=== PATIENT | male | born 1960 | race Caucasian/White ===

== ENCOUNTER → 2023-04-02 16:08 | Outpatient (CLI) | payer MEDICAID, SELFPAY ==
--- NOTE | 2023-04-02 16:08 | MR_ITS ---
PROCEDURE INFORMATION: Exam: MR Head Without Contrast Exam date and time: 04/02/2023 4:06 PM Age: 62 years old Clinical indication: Pain; Headache; Additional info: Benign increased intracranial pressure, headache, blurred vision, dizziness and off balance TECHNIQUE: Imaging protocol: Magnetic resonance imaging of the head without contrast. COMPARISON: No relevant prior studies available. FINDINGS: Brain: No acute infarct. No hemorrhage. Involutional changes of the brain, commensurate with age. No mass effect. Cerebral ventricles: Cavum septum pellucidum et vergae. No ventriculomegaly. Bones/joints: Unremarkable. Paranasal sinuses: Normal as visualized. No acute sinusitis. Mastoid air cells: Small left mastoid effusion. Orbital cavities: Unremarkable. Soft tissues: Unremarkable. IMPRESSION: No acute intracranial abnormality.
== END ==
PROVIDERS: PCP Family Medicine; Visit Provider Specialist
DX: G44.059 Short lasting unilateral neuralgiform headache with conjunctival injection and tearing (SUNCT), not intractable (principal); G93.2 Benign intracranial hypertension
CPT/HCPCS: 70551

== ENCOUNTER → 2023-04-23 16:01 | Outpatient (POV) | payer MEDICAID, SELFPAY | PROVIDERS: Visit Provider Specialist/Technologist | DX: Z00.00 Encounter for general adult medical examination without abnormal findings (principal) ==

== ENCOUNTER → 2023-06-04 23:56 | Outpatient (CLI) | payer MEDICAID, SELFPAY ==
[2023-06-04 17:10] LABS: Basophils # 0.1 K/mm3 (0-0.2); Basophils % 0.7 % (0.1-2.0); Eosinophils # 0.3 K/mm3 (0.0-0.4); Eosinophils % 2.6 % (0.1-12.0); Hematocrit 58.5 % (42.0-52.0); Lymphocytes # 2.8 K/mm3 (0.7-4.5); Mean Corpuscular Hemoglobin 30.8 pg (27.0-31.2); Mean Corpuscular Volume 96.4 fl (80-94); Mean Platelet Volume 10.1 fl (7.4-10.4); Monocytes # 0.8 K/mm3 (0.1-1.0); Monocytes % 7.5 % (1.7-9.3); Neutrophils # 6.2 K/mm3 (1.8-7.8); Neutrophils % 61.3 % (37.0-80.0); Platelet Count 322 K/mm3 (142-424); Red Blood Count 6.08 M/mm3 (4.60-6.20); Red Cell Distribution Width 14.3 % (11.5-17.5); White Blood Count 10.1 K/mm3 (4.8-10.8)
[2023-06-04 17:14] LABS: Alanine Aminotransferase 27 U/L (12-78); Albumin Level 4.3 g/dl (3.5-5.0); Albumin/Globulin Ratio 1.2 (1.1-1.8); Alkaline Phosphatase 88 U/L (38-126); Anion Gap 13.7 mEq/L (5-15); Aspartate Amino Transferase 33 U/L (17-59); Bilirubin,Total 0.4 mg/dl (0.2-1.3); Blood Urea Nitrogen 10 mg/dl (9-20); Calcium 9.6 mg/dl (8.4-10.2); Carbon Dioxide 32 mmol/L (22.0-30.0); Chloride 100 mmol/L (98-107); Chol/HDL Ratio 7.2 (1-3.5); Cholesterol 187 mg/dl (140-200); Estimated Glomerular Filt Rate 76 ml/min (>60); GFR (African American) 92 ML/MIN (>60); Globulin 3.5 g/dL (1.3-3.2); Glucose 156 mg/dl (74-100); HDL Cholesterol 26 mg/dl (40-60); Potassium 4.7 mmoL/L (3.5-5.1); Sodium 141 mmol/L (136-145); Total Protein,Serum 7.8 g/dl (6.3-8.2); Triglycerides 379 mg/dl (30-150); VLDL Cholesterol 76 mg/dL (0-40)
[2023-06-04 17:25] LABS: Direct LDL Cholesterol 104.05 mg/dL (100-129)
[2023-06-04 17:38] LABS: Hemoglobin 18.1 g/dL (14.1-18.0)
[2023-06-04 17:45] LABS: Thyroid Stimulating Hormone 1.78 uIU/mL (0.465-4.68)
[2023-06-04 20:11] LABS: Hemoglobin A1C 7.8 % (4.0-6.0)
== END ==
PROVIDERS: PCP Family Medicine; Visit Provider Family Medicine
DX: Z00.00 Encounter for general adult medical examination without abnormal findings (principal); R53.83 Other fatigue; I10 Essential (primary) hypertension; E11.9 Type 2 diabetes mellitus without complications; Z79.84 Long term (current) use of oral hypoglycemic drugs; Z79.899 Other long term (current) drug therapy
CPT/HCPCS: 80053; 80061; 83036; 84443; 85025

== ENCOUNTER → 2023-07-31 16:38 | Outpatient (CLI) | payer MEDICAID, SELFPAY ==
[2023-07-31 16:38] LABS: Basophils # 0.1 K/mm3 (0-0.2); Basophils % 0.9 % (0.1-2.0); Eosinophils # 0.4 K/mm3 (0.0-0.4); Eosinophils % 2.9 % (0.1-12.0); Hematocrit 52.7 % (42.0-52.0); Hemoglobin 17.8 g/dL (14.1-18.0); Lymphocytes # 3.7 K/mm3 (0.7-4.5); Lymphocytes % 30.1 % (10-50); Mean Corpuscular HGB Conc 33.7 g/dL (31.8-35.4); Mean Corpuscular Hemoglobin 31.7 pg (27.0-31.2); Neutrophils # 7.1 K/mm3 (1.8-7.8); Platelet Count 304 K/mm3 (142-424); Red Blood Count 5.61 M/mm3 (4.60-6.20); Red Cell Distribution Width 13.4 % (11.5-17.5); White Blood Count 12.3 K/mm3 (4.8-10.8)
== END ==
PROVIDERS: PCP Family Medicine; Visit Provider Family Medicine
DX: D75.1 Secondary polycythemia (principal)
CPT/HCPCS: 85025

== ENCOUNTER 2023-08-06 09:03 | Outpatient (CLI) | payer MEDICAID, SELFPAY ==
--- NOTE | 2023-08-06 09:07 | XR_ITS ---
FINAL REPORT CLINICAL HISTORY: low back pain neck pain FINDINGS: LUMBAR SPINE 5 views of the lumbar spine were obtained. There is no acute fracture or subluxation. There are mild to moderate degenerative changes with osteophytes. A chronic, L1 compression fracture is seen. There are mild vascular calcifications. IMPRESSION: No acute bony abnormality. CERVICAL SPINE 5 views of the cervical spine were obtained. There is no acute fracture or subluxation. There are moderate degenerative changes. Multilevel, mild neuroforaminal narrowing is seen. Soft tissues are unremarkable. IMPRESSION: Mild, multilevel neuroforaminal narrowing without acute bony abnormality. Reviewed, Interpreted and Dictated by Pascual Tran III, MD Transcribed by Tita Price Authenticated and [facility]
== END 2023-08-06 10:15 | disposition home or self-care (01) ==
LOC: INF 09:04
PROVIDERS: PCP Family Medicine; Visit Provider Family Medicine
DX: D45 Polycythemia vera (principal)
CPT/HCPCS: 72084

== ENCOUNTER 2023-08-07 08:31 | Outpatient (CLI) | payer MEDICAID, SELFPAY ==
[2023-08-07 09:10] VITALS: BP 158/88; PULSE 58; RESP 18; TEMP 36.6; O2SAT 98
[2023-08-07 09:30] VITALS: BP 150/81; PULSE 58; RESP 18; O2SAT 98
== END 2023-08-07 09:30 | disposition home or self-care (01) ==
LOC: INF 08:32
PROVIDERS: PCP Family Medicine; Visit Provider Family Medicine
DX: D45 Polycythemia vera (principal)
CPT/HCPCS: 99195

== ENCOUNTER → 2023-09-24 16:42 | Outpatient (CLI) | payer MEDICAID, SELFPAY ==
[2023-09-24 16:42] LABS: Alanine Aminotransferase 26 U/L (12-78); Albumin/Globulin Ratio 1.3 (1.1-1.8); Alkaline Phosphatase 78 U/L (38-126); Anion Gap 10.1 mEq/L (5-15); Aspartate Amino Transferase 32 U/L (17-59); Bilirubin,Total 0.4 mg/dl (0.2-1.3); Blood Urea Nitrogen 11 mg/dl (9-20); Calcium 8.8 mg/dl (8.4-10.2); Carbon Dioxide 29 mmol/L (22.0-30.0); Chloride 101 mmol/L (98-107); Chol/HDL Ratio 9.1 (1-3.5); Cholesterol 218 mg/dl (140-200); Estimated Glomerular Filt Rate 98 ml/min (>60); GFR (African American) 119 ML/MIN (>60); Globulin 3.1 g/dL (1.3-3.2); Glucose 161 mg/dl (74-100); HDL Cholesterol 24 mg/dl (40-60); Potassium 4.1 mmoL/L (3.5-5.1); Sodium 136 mmol/L (136-145); Total Protein,Serum 7.1 g/dl (6.3-8.2); Triglycerides 391 mg/dl (30-150); VLDL Cholesterol 78 mg/dL (0-40)
[2023-09-24 16:50] LABS: Basophils # 0.1 K/mm3 (0-0.2); Basophils % 0.7 % (0.1-2.0); Eosinophils # 0.3 K/mm3 (0.0-0.4); Eosinophils % 2.5 % (0.1-12.0); Hematocrit 54.2 % (42.0-52.0); Hemoglobin 17.6 g/dL (14.1-18.0); Lymphocytes # 3.2 K/mm3 (0.7-4.5); Lymphocytes % 27.9 % (10-50); Mean Corpuscular HGB Conc 32.4 g/dL (31.8-35.4); Mean Corpuscular Hemoglobin 30.2 pg (27.0-31.2); Mean Corpuscular Volume 93.2 fl (80-94); Mean Platelet Volume 9.8 fl (7.4-10.4); Monocytes # 0.8 K/mm3 (0.1-1.0); Monocytes % 7.3 % (1.7-9.3); Neutrophils % 61.6 % (37.0-80.0); Platelet Count 300 K/mm3 (142-424); Red Blood Count 5.82 M/mm3 (4.60-6.20); Red Cell Distribution Width 13.8 % (11.5-17.5); White Blood Count 11.3 K/mm3 (4.8-10.8)
[2023-09-24 16:54] LABS: Direct LDL Cholesterol 126.08 mg/dL (100-129)
[2023-09-24 17:46] LABS: Hemoglobin A1C 8.4 % (4.0-6.0)
== END ==
PROVIDERS: PCP Family Medicine; Visit Provider Family Medicine
DX: E11.9 Type 2 diabetes mellitus without complications (principal); I10 Essential (primary) hypertension; Z79.84 Long term (current) use of oral hypoglycemic drugs
CPT/HCPCS: 80053; 80061; 83036; 85025

== ENCOUNTER 2024-01-26 09:09 | Outpatient (CLI) | payer MEDICAID, SELFPAY ==
[2024-01-26 16:43] LABS: Basophils # 0.2 K/mm3 (0-0.2); Basophils % 1.3 % (0.1-2.0); Eosinophils # 0.4 K/mm3 (0.0-0.4); Hematocrit 52.8 % (42.0-52.0); Hemoglobin 16.7 g/dL (14.1-18.0); Lymphocytes % 32.2 % (10-50); Mean Corpuscular HGB Conc 31.7 g/dL (31.8-35.4); Mean Corpuscular Hemoglobin 30.6 pg (27.0-31.2); Mean Corpuscular Volume 96.5 fl (80-94); Mean Platelet Volume 9.9 fl (7.4-10.4); Neutrophils # 6.9 K/mm3 (1.8-7.8); Neutrophils % 55.5 % (37.0-80.0); Platelet Count 288 K/mm3 (142-424); Red Blood Count 5.47 M/mm3 (4.60-6.20); Red Cell Distribution Width 14.9 % (11.5-17.5); White Blood Count 12.4 K/mm3 (4.8-10.8)
[2024-01-26 17:29] LABS: Alanine Aminotransferase 21 U/L (12-78); Albumin Level 4.2 g/dl (3.5-5.0); Albumin/Globulin Ratio 1.4 (1.1-1.8); Alkaline Phosphatase 81 U/L (38-126); Anion Gap 19.6 mEq/L (5-15); Aspartate Amino Transferase 27 U/L (17-59); Bilirubin,Total 0.3 mg/dl (0.2-1.3); Blood Urea Nitrogen 12 mg/dl (9-20); Calcium 9.3 mg/dl (8.4-10.2); Carbon Dioxide 20 mmol/L (22.0-30.0); Chloride 103 mmol/L (98-107); Estimated Glomerular Filt Rate 114 ml/min (>60); GFR (African American) 138 ML/MIN (>60); Globulin 2.9 g/dL (1.3-3.2); Glucose 102 mg/dl (74-100); Potassium 3.6 mmoL/L (3.5-5.1); Sodium 139 mmol/L (136-145); Total Protein,Serum 7.1 g/dl (6.3-8.2)
[2024-01-26 17:57] LABS: Thyroid Stimulating Hormone 2.32 uIU/mL (0.465-4.68)
[2024-01-26 19:06] LABS: Hemoglobin A1C 8.4 % (4.0-6.0)
== END 2024-01-26 23:59 | disposition home or self-care (01) ==
LOC: LAB.DROPOF 01-27 09:09
PROVIDERS: PCP Family Medicine; Visit Provider Family Medicine
DX: R53.83 Other fatigue (principal); I10 Essential (primary) hypertension; E11.42 Type 2 diabetes mellitus with diabetic polyneuropathy; Z79.84 Long term (current) use of oral hypoglycemic drugs; Z87.891 Personal history of nicotine dependence
CPT/HCPCS: 80053; 83036; 84443; 85025

== ENCOUNTER 2024-01-29 09:59 | Outpatient (CLI) | payer MEDICAID, SELFPAY ==
[2024-01-29 10:37] VITALS: BP 180/88; PULSE 56; RESP 16; TEMP 36.3; O2SAT 95
[2024-01-29 11:08] VITALS: BP 159/79; PULSE 61; RESP 16; TEMP 36.3; O2SAT 95
--- NOTE | 2024-01-29 15:59 | PC.NURSE ---
therapeutic phlebotomy 215ml collected.
== END 2024-01-29 11:15 | disposition home or self-care (01) ==
LOC: INF 09:59
PROVIDERS: PCP Family Medicine; Visit Provider Family Medicine
DX: D75.1 Secondary polycythemia (principal)
CPT/HCPCS: 99195

== ENCOUNTER 2024-03-23 09:51 | Outpatient (CLI) | payer MEDICAID, SELFPAY ==
--- NOTE | 2024-03-23 09:51 | CA_ITS ---
FINAL REPORT CLINICAL HISTORY: bilateral leg swelling and knots on legs. DM, ex smoker, smokes marijuana, HLD, HTN. Patient states he noticed knots in his right calf 2 weeks ago. Those knots now extend into right thigh with redness noted in the medial aspect of mid right thigh. Denies trauma. 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 COMPARISON: None FINDINGS: Color Doppler, duplex Doppler and compression sonography of the bilateral lower extremities was performed. There is no evidence of deep venous thrombosis from the level of the groin to the calf in the left lower extremity.. The deep veins are patent and compressible. In the right lower extremity, there is loss of compressibility and lack of flow in the superficial venous system involving the greater saphenous vein. The deep venous system from the level of the groin to the calf reveals flow and compressibility to be normal. IMPRESSION: No evidence of deep venous thrombosis bilateral lower extremities. Loss of compressibility and lack of flow in the greater saphenous vein consistent with superficial venous thrombosis in the right leg. These results were called by the mold repair technician to [place] in Dr. Mcmullen's office. Reviewed, Interpreted and Dictated by Pascual Tran III, MD Transcribed by Kristin Hendrickson Authenticated and [facility]
== END 2024-03-23 23:59 | disposition home or self-care (01) ==
LOC: RT 09:51
PROVIDERS: PCP Family Medicine; Visit Provider Family Medicine
DX: R22.43 Localized swelling, mass and lump, lower limb, bilateral (principal)
CPT/HCPCS: 93970

== ENCOUNTER 2024-05-04 12:11 | Outpatient (CLI) | payer MEDICAID, SELFPAY | END 2024-05-04 23:59 | disposition home or self-care (01) | LOC: LAB.DROPOF 05-05 12:11 | PROVIDERS: PCP Family Medicine; Visit Provider Family Medicine | DX: E11.42 Type 2 diabetes mellitus with diabetic polyneuropathy (principal); Z79.84 Long term (current) use of oral hypoglycemic drugs | CPT/HCPCS: 83036 ==

== ENCOUNTER 2024-08-03 22:04 | Outpatient (CLI) | payer MEDICAID, SELFPAY ==
[2024-08-03 22:31] LABS: Basophils # 0.1 K/mm3 (0-0.2); Basophils % 1.4 % (0.1-2.0); Eosinophils # 0.2 K/mm3 (0.0-0.4); Eosinophils % 2.6 % (0.1-12.0); Hematocrit 53.9 % (42.0-52.0); Hemoglobin 17.8 g/dL (14.1-18.0); Lymphocytes # 2.3 K/mm3 (0.7-4.5); Lymphocytes % 26.7 % (10-50); Mean Corpuscular Hemoglobin 32.6 pg (27.0-31.2); Mean Corpuscular Volume 98.8 fl (80-94); Mean Platelet Volume 10.1 fl (7.4-10.4); Monocytes # 0.8 K/mm3 (0.1-1.0); Monocytes % 9.1 % (1.7-9.3); Neutrophils # 5.3 K/mm3 (1.8-7.8); Neutrophils % 60.1 % (37.0-80.0); Platelet Count 291 K/mm3 (142-424); Red Blood Count 5.46 M/mm3 (4.60-6.20); Red Cell Distribution Width 14.1 % (11.5-17.5); White Blood Count 8.7 K/mm3 (4.8-10.8)
[2024-08-03 23:01] LABS: Alanine Aminotransferase 37 U/L (12-78); Albumin Level 4.6 g/dl (3.5-5.0); Albumin/Globulin Ratio 1.5 (1.1-1.8); Alkaline Phosphatase 82 U/L (38-126); Anion Gap 10.2 mEq/L (5-15); Aspartate Amino Transferase 44 U/L (17-59); Bilirubin,Total 0.5 mg/dl (0.2-1.3); Blood Urea Nitrogen 12 mg/dl (9-20); Calcium 9.5 mg/dl (8.4-10.2); Carbon Dioxide 31 mmol/L (22.0-30.0); Chloride 99 mmol/L (98-107); Cholesterol 263 mg/dl (140-200); Estimated Glomerular Filt Rate 114 ml/min (>60); GFR (African American) 138 ML/MIN (>60); Globulin 3.1 g/dL (1.3-3.2); Glucose 119 mg/dl (74-100); HDL Cholesterol 33 mg/dl (40-60); Potassium 5.2 mmoL/L (3.5-5.1); Sodium 135 mmol/L (136-145); Total Protein,Serum 7.7 g/dl (6.3-8.2)
[2024-08-03 23:11] LABS: Triglycerides 594 mg/dl (30-150)
[2024-08-03 23:14] LABS: Hemoglobin A1C 7.3 % (4.0-6.0)
[2024-08-04 00:11] LABS: Thyroid Stimulating Hormone 1.94 uIU/mL (0.465-4.68)
== END 2024-08-03 23:59 | disposition home or self-care (01) ==
LOC: LAB.DROPOF 22:05
PROVIDERS: PCP Family Medicine; Visit Provider Family Medicine
DX: I10 Essential (primary) hypertension (principal); D75.1 Secondary polycythemia; E11.42 Type 2 diabetes mellitus with diabetic polyneuropathy; Z79.84 Long term (current) use of oral hypoglycemic drugs
CPT/HCPCS: 80050; 80053; 80061; 83036; 84443; 85025

== ENCOUNTER 2024-08-23 06:12 | Outpatient (CLI) | payer MEDICAID, SELFPAY ==
--- NOTE | 2024-08-23 | CA_ITS ---
APPROVED REPORT Exam: Pharmacologic Technologist: Vianca Wise Ht: 5 ft 11 in Wt: 244 lbs BSA: 2.29 m2 HR: 64 bpm BP: 185/94 mmHg Medical History Medications: Albuterol, Allopurinol, Amitriptyline,Jardiance,Glipizide,Losartan,Metformin,Metoprolol, Pantoprazole, Pravastatin, Tamsulosin Stress Test Details Test: Lexiscan HR Resting HR: 64 bpm Max Heart Rate (APMHR): 157 bpm Max HR Achieved: 83 bpm Target HR (85% APMHR): 133 bpm % of APMHR: 53 Recovery HR: 72 bpm BP Resting BP: 185.0/94.0 mmHg Max BP: 185.0/94.0 mmHg Recovery BP: 184.0/93.0 mmHg ECG Resting ECG: Sinus rhythm Stress ECG Conclusion Symptoms: Dyspnea, Nausea Arrhythmias/Ectopy: None ST-T Changes: Less than 1 mm elevation Conclusion: EKG portion unremarkable due to Lexiscan infusion. Electronically signed by : Sakina Rodriguez MD 08/24/2024 12:19:56
--- NOTE | 2024-08-23 06:16 | NM_ITS ---
APPROVED REPORT Exam: Nuclear Stress Test Indication: Chest pain, SOB, HTN, DM, High choelsterol, Family history Patient Location: Outpatient Stress Tech: Vianca Wise [place] Tech:Petty Escamilla, ARRT, RT (R)(N) Ht: 5 ft 11 in Wt: 245 lbs HR: 64 bpm BP: 185/94 mmHg BSA: 2.30 m2 TID: 1.28 BMI: 34.1 History: Chest pain, SOB, HTN, DM, High choelsterol, Family history Procedure: Patient received 0.4 mg of intravenous Lexiscan, resting heart rate 64 bpm, resting blood pressure 185/94 mmHg, with Lexiscan maximum heart rate achieved was 76 bpm which is % of the maximum predicted heart rate and blood pressure was 171/96 mmHg. With Lexiscan, patient denied any complaint of chest pain. Cardiac Stress and Resting SPECT Images: Cardiac Stress and Resting SPECT images were obtained using technetium 99m Myoview 26.2 mCi stress and 8.25 mCi at rest. Resting and stress imaging in supine and prone positions demonstrate no evidence of fixed or reversible perfusion defects. There is increase in transient ischemic dilatation ratio (TID 1.28), suggestive of possible multivessel disease or balanced ischemia. Gated imaging demonstrates normal global and regional LV systolic function. LVEF is calculated at 56%. Conclusion: No evidence of fixed or reversible perfusion defects. There is increase in transient ischemic dilatation ratio (TID 1.28), suggestive of possible multivessel disease or balanced ischemia. Gated imaging demonstrates normal global and regional LV systolic function. LVEF is calculated at 56%. In the setting of normal LV systolic function and no focal perfusion defects, further evaluation for the TID is suggested noninvasively with CCTA (if clinically feasible and indicated) prior to proceeding with invasive coronary angiography. Electronically signed by : Sakina Rodriguez MD 08/24/2024 12:08:47
[2024-08-23] MEDS: REGADENOSON 0.4MG/5ML SYRINGE 0.4 MG IV (08:08)
[2024-08-23] MEDS: SODIUM CHLORIDE 0.9% 10ML SYR (RAD ONLY) 10 ML IV ×2 (08:08)
[2024-08-23] MEDS: ISOTOPE MYOVIEW (PER STUDY) 1 DOSE IV (08:08)
== END 2024-08-23 23:59 | disposition home or self-care (01) ==
LOC: RAD 06:12
PROVIDERS: PCP Family Medicine; Visit Provider Physician Assistant
DX: R07.9 Chest pain, unspecified (principal); R94.31 Abnormal electrocardiogram [ECG] [EKG]; R06.00 Dyspnea, unspecified
CPT/HCPCS: 78452; 93017; 93018; A9502; J2785

== ENCOUNTER 2024-09-06 12:01 | Outpatient (CLI) | payer MEDICAID, SELFPAY | END 2024-09-06 23:59 | disposition home or self-care (01) | LOC: RT 12:02 | PROVIDERS: PCP Family Medicine; Visit Provider Internal Medicine | DX: R42 Dizziness and giddiness (principal); R55 Syncope and collapse | CPT/HCPCS: 93270 ==

== ENCOUNTER 2024-09-28 08:16 | Outpatient (CLI) | payer MEDICAID, SELFPAY ==
[2024-09-28 07:37] VITALS: BMI 34.0
--- NOTE | 2024-09-28 08:17 | CT_ITS ---
APPROVED REPORT Freezer Unloader: CLINICAL INDICATION Chest Pain TECHNIQUE Image Acquisition: A 128 slice MDCT scanner ([employer] View) was used for data acquisition. A noncontrast coronary calcium scan was performed. A CT attenuation threshold of 130 Hounsfield units (HU) was used for the detection of calcium in contiguous voxels of 1 sq mm in area to be counted as individual lesions. Bolus tracking in the ascending aorta with a threshold of 180 HU was performed. Immediately afterwards, ECG synchronized cardiac CT was then performed from the cardiac base to apex using retrospective gating with ECG tube current modulation. A total of 85 mL of Isovue 370 mg/mL contrast medium was administered at 5 mL/sec followed by a saline flush using a biphasic injection protocol. A tube voltage of 120 KVp was used. The patient received the following medications prior to the cardiac CT. 0.8 mg of sublingual nitroglycerin The average heart rate at the time of acquisition was 59 bpm and regular. Image Reconstruction Transaxial images were reconstructed at 0.67 mm slide thickness. Data was reviewed interactively on an advanced workstation capable of 2 and 3-dimensional displays in all conventional reconstruction formats, including multiplanar reformations, maximum intensity projections, curved multiplanar reformations, and volume rendered reconstructions. When applicable, selected routine images describing the relevant coronary anatomy and pathology were saved and sent to PACS. Complications None Technical Quality Overall image quality was good. Coronary artery opacification was adequate. Total DLP (Dose-Length Product) is 1597.8 mGy-cm. The reported value represents the total of one or more individual components during the CT acquisition of this date and at this time, and as such, the same value may appear in more than one CT report depending on the interpreting/reporting physicians. COMPARISON None FINDINGS CT Coronary Calcium Scoring LMA (Left Main Artery) = 0 LAD (Left Anterior Descending) = 0 LCX (Left Coronary Circumflex) = 0 RCA (Right Coronary Artery) = 0 Total Calcium Score = 0 using the AJ-130 method. The interpretation of the calcium heart score is based on the following continuum*: 0 = no calcified plaque detected (risk of coronary artery disease is very low ??? less than 5%) 1-10 = calcium detected in extremely minimal levels (risk of coronary diseases is still low ??? less than 10%) 11-100 = mild levels of plaque detected with certainty (mild or minimal narrowing of heart arteries is likely) 101-400 = definite,at least moderate levels of plaque detected (relatively high risk of a heart attack within 3-5 years) >401-999 = extensive levels of plaque detected (high risk of heart attack, high levels of vascular disease are present, high likelihood of at least one significant coronary narrowing) *The calcium heart score quantifies the burden of coronary calcification/plaque in the coronary arteries. The calcium heart score is not able to evaluate the presence or burden of non-calcified (i.e. soft) plaque. There is no identifiable calcification in the aortic valve, mitral annulus or mitral valve, pericardium, or myocardium. Coronary CT Angiography The coronary arterial system is right dominant. Quantitative Stenosis Grading: Left Main (LM): The left main originates normally from the left sinus of Valsalva. The LM bifurcates into the left anterior descending artery and left circumflex artery. The LM is patent with no evidence of atherosclerosis. Left Anterior Descending (LAD) and Diagonal Branches: The LAD gives off 2 diagonal branch(es). The LAD and its branches are patent with no evidence of atherosclerosis. There is no evidence of LAD-myocardial bridge. Left Circumflex (LCX) and Obtuse Marginals (OM): The LCX gives off 2 Obtuse Marginal (OM) branch(es). The LCX and its branches are patent with no evidence of atherosclerosis. Right Coronary Artery (RCA): The RCA originates normally from the right sinus of Valsalva. There are 2 foci of noncalcified plaque present in the proximal RCA segment, with up to 70-90% luminal stenosis (the findings considered less likely to be artifact as it was present on multiple cardiac phases and planes). Non-Coronary Cardiac Findings: Analysis of the left ventricular (LV) structure and function was performed after 3-D reconstruction of the LV from axial images, with user-corrected automatic contouring for assessment of LV volumes and user-defined reconstruction from oblique planes for measurement of 3-D cardiac structure and function. -The left ventricle systolic function is normal. -There is no left atrial appendage filling defect. Two right pulmonary veins and two left pulmonary veins drain normally into the left atrium. -No pericardial thickening or calcification. -Central and branch pulmonary arteries in the [id number] are unremarkable. -Thoracic aorta within the visualized thoracic aortic-branches in the [id number] is unremarkable. Extracardiac Structures No significant extra-cardiac findings. Note, however, that this study is focused on the cardiac findings. IMPRESSION -Presence of coronary calcification with an Agatston score = 0 using the AJ-130 method. -Noncalcified low-attenuation plaque present in the proximal RCA, with up to 70-90% luminal stenosis (the findings considered less likely to be artifact as it was present on multiple cardiac phases and planes) -CAD-RADS 4A. Management recommendations per ACC/AHA guidelines*, as clinically appropriate. *Recommendations: CAD RADS 0: Reassurance. Consider non-atherosclerotic causes of chest pain. CAD RADS 1: Consider non-atherosclerotic causes of chest pain. Consider preventive therapy and risk factor modification. CAD RADS 2: Consider non-atherosclerotic causes of chest pain. Consider preventive therapy and risk factor modification, particularly for patients with nonobstructive plaque in multiple segments. CAD RADS 3: Consider further functional testing. Consider symptom-guided anti-ischemic and preventive pharmacotherapy as well as risk factor modification per published guideline statements. CAD RADS 4A: Consider further functional testing or invasive coronary angiography with revascularization per published guideline statements. Consider symptom-guided anti-ischemic and preventive pharmacotherapy as well as risk factor modification per published guideline statements. CAD RADS 4B: Invasive coronary angiography recommended with revascularization per published guideline statements. Consider symptom-guided anti-ischemic and preventive pharmacotherapy as well as risk factor modification per published guideline statements. CAD RADS 5: Consider invasive angiography and/or viability assessment with revascularization per published guideline statements. Consider symptom-guided anti-ischemic and preventive pharmacotherapy as well as risk factor modification per published guideline statements. CRITICAL RESULT None COMMUNICATION Per this written report The coronary and cardiac findings of this CCTA were reviewed, reported, and signed by Ahmet Rodriguez MD (Manager Video) Conclusion Electronically signed by : Sakina Rodriguez MD 09/29/2024 12:42:32
[2024-09-28 08:32] VITALS: BP 191/94; PULSE 56; RESP 16; TEMP 36.1; O2SAT 92
[2024-09-28 08:53] LABS: Chloride 103 mmol/L (98-107)
[2024-09-28 08:54] LABS: Potassium 3.3 mmoL/L (3.5-5.1); Sodium 136 mmol/L (136-145)
[2024-09-28 08:57] LABS: Anion Gap 4.3 mEq/L (5-15); Blood Urea Nitrogen 9 mg/dl (9-20); Carbon Dioxide 32 mmol/L (22.0-30.0); Creatinine Clearance Estimated 118 mL/min (50-200); Estimated Glomerular Filt Rate 98 ml/min (>60); GFR (African American) 118 ML/MIN (>60); Glucose 152 mg/dl (74-100)
[2024-09-28 09:10] VITALS: BP 196/109; PULSE 54; RESP 20; O2SAT 96
[2024-09-28] MEDS: NITROGLYCERIN 0.4MG SL TABLET SL (09:10)
[2024-09-28 09:13] VITALS: BP 130/91; PULSE 57; RESP 18; O2SAT 95
[2024-09-28 09:16] VITALS: BP 130/96; PULSE 59; RESP 18; O2SAT 93
[2024-09-28] MEDS: IOPAMIDOL-370 (76%);100ML BOTTLE 85 ML IV (09:22)
[2024-09-28] MEDS: SODIUM CHLORIDE 0.9% 10ML SYR (RAD ONLY) 10 ML IV (09:22)
[2024-09-28] MEDS: 0.9 % SODIUM CHLORIDE 50 ML VIAL IV (09:22)
== END 2024-09-28 09:45 | disposition home or self-care (01) ==
PROVIDERS: PCP Family Medicine; Visit Provider Internal Medicine
DX: R94.31 Abnormal electrocardiogram [ECG] [EKG] (principal); R93.1 Abnormal findings on diagnostic imaging of heart and coronary circulation; R55 Syncope and collapse; R42 Dizziness and giddiness
CPT/HCPCS: 75574; 80048; Q9967

== ENCOUNTER 2024-10-13 07:42 | Outpatient (CLI) | payer MEDICAID, SELFPAY ==
--- NOTE | 2024-10-13 07:57 | CA_ITS ---
APPROVED REPORT EXAM: Comprehensive 2D, Doppler, and color-flow Echocardiogram Armhole Presser: Felisa Cormier RVT Ht: 5 ft 11 in Wt: 244lbs BSA: 2.29 BP: 150/78 mmHg Indications: CP,DYSPENA,ABN EKG,DM,HTN,EX SMOKER,SYNCOPE 2D Dimensions LA Volume 70.60 mL LA Volume Index 30.70 mL/m2 (M/F) 16-34 M-Mode Dimensions RVDd 2.76 cm (0.9-2.6) LA Diam 3.73 cm (1.9-4.0) LVDd 6.07 cm (3.5-5.7) LVDs 4.33 cm (3.5-5.7) IVSd 1.32 cm (0.6-1.1) PWd 0.76 cm (0.6-1.1) EF (Teich) 54.30% FS 28.70% EDV (Teich) 184.80 mL TAPSE 2.69 (<1.7) ESV (Teich) 84.40 mL LV Diastology E Decel Time 260 (160-240 msec) E/A Ratio 0.8 Aortic Valve HARI Index 1.00 cm2/m2 AoV Peak Rachid. 121.0 (50-130 cm/s) AI PHT 713.00 ms AO Peak GR. 5.90 mmHg AO Mean GR. 3.50 (<5 mmHg) AO VTI 27.6 (18-25 cm) HARI (VTI) 2.35 (2.5-4.5 cm2) Mitral Valve MV E Max Rachid. 61.0 (40-130 cm/s) MV A Velocity 75.0 (40-130 cm/s) E/A Ratio 0.82 MV PHT 76.0 ms Pulmonary Valve PV Peak Velocity 78.0 (50-150 cm/s) Left Ventricle The left ventricle is normal size. The left ventricular systolic function is normal. The left ventricular ejection fraction is within the normal range. There is increased LV wall thickness. There is normal LV segmental wall motion. The left ventricular diastolic function is normal. LVEF is 55%. Right Ventricle The right ventricle is normal size. The right ventricular systolic function is normal. Atria Left atrium is mildly dilated. Right atrium is mildly dilated. There is no Doppler evidence of interatrial shunt. Aortic Valve The aortic valve is mildly thickened. There is no aortic valvular stenosis. Trace aortic regurgitation. Mitral Valve The mitral valve is normal in structure. No evidence of mitral valve stenosis. Trace mitral regurgitation. Tricuspid Valve Tricuspid valve is grossly normal in structure and function. Trace tricuspid regurgitation. There is insufficient TR jet to estimate RVSP. Pulmonic Valve The pulmonary valve is normal in structure. Trace pulmonic regurgitation. Great Vessels The aortic root is normal in size. IVC is normal in size and collapses >50% with inspiration. Pericardium There is no pericardial effusion. Other Information Study Quality: Fair Conclusion Normal biventricular systolic function. Mild biatrial dilation. No significant valvular stenosis or regurgitation. Electronically signed by : Sakina Rodriguez MD 10/19/2024 19:45:34
== END 2024-10-13 23:59 | disposition home or self-care (01) ==
LOC: RT 07:43
PROVIDERS: PCP Family Medicine; Visit Provider Internal Medicine
DX: I51.7 Cardiomegaly (principal); R07.89 Other chest pain; R06.09 Other forms of dyspnea; R55 Syncope and collapse; R42 Dizziness and giddiness; R94.31 Abnormal electrocardiogram [ECG] [EKG]; R93.1 Abnormal findings on diagnostic imaging of heart and coronary circulation
CPT/HCPCS: 93306

== ENCOUNTER 2024-10-14 06:30 | Day surgery (SDC) | payer MEDICAID, SELFPAY ==
[2024-10-14] VITALS (12 sets, daily range): BP systolic 113–186; BP diastolic 58–105; PULSE 51–68; RESP 17–18; TEMP 36.6; O2SAT 93–99; BMI 34.0
--- NOTE | 2024-10-14 07:13 | IR_ITS ---
APPROVED REPORT Patient Location: Outpatient Pattern Scratcher: Bartolo Alves, RT (R) PROCEDURES Left heart catheterization Left ventriculogram Selective coronary angiogram Drug-eluting stent deployment to the mid dominant right coronary artery INDICATION Coronary artery disease, Angina pectoris Informed consent was obtained prior to the procedure. COMPLICATIONS NONE Estimated Blood Loss: LESS THAN 10 ML TECHNIQUE One percent lidocaine used to anesthetize the right anterior aspect of the wrist. The right radial artery was accessed via the Seldinger technique. A 6 Israeli sheath was placed in the right radial artery. 2.5 mg of Verapamil, 800 mcg of nitroglycerin, 1mg Lidocaine and 5000 U Heparin were given through the arterial sheath. The papa catheter was also used to perform left heart catheterization, left ventriculogram and selective coronary angiogram. At the end of the diagnostic angiogram therapeutic heparin was administered giving a therapeutic ACT and the guide catheter was placed in the right coronary artery followed by Choice PT extra-support wire placed distally. A 5 mm x 30 mm Startex frontier stent was deployed at 16 susan reducing the stenosis. A 5 mm x 12 mm noncompliant balloon was then introduced into the midportion of the stent dilated at 24 susan to post dilate. The balloon was brought back proximally and also dilated to 24 susan to post dilate. JOSH-3 flow was present before and after the procedure. After achieving excellent angiographic results the apparatus was removed the sheath was removed and hemostasis was achieved using TR banding patient was transferred to the postop putting in stable condition ANGIOGRAPHIC RESULTS The left main artery Normal The left anterior descending artery Mild proximal and mid vessel 10% luminal regularities The circumflex artery Nondominant 10% luminal regularities The right coronary artery Massively large dominant vessel with a mid vessel eccentric 80% stenosis followed by distal 20 and 30% stenosis The ADAMS ventriculogram reveals Normal 65% The left ventricular end-diastolic pressure 10 mmHg IMPRESSION Severe disease of massively large dominant right coronary artery with successful stenting reducing the lesion to 0% with 1 drug-eluting stent Normal ejection fraction Normal LVEDP PLAN 1. Effient and aspirin 2. LDL less than 55 to achieve that high intensity statin 3. Avoidance of tobacco product 4. Risk factor modification better control of hypertension 5. Cardiac rehabilitation Electronically signed by : Baldo Pereira MD 10/14/2024 09:31:56
[2024-10-14 07:16] LABS: Basophils # 0.1 K/mm3 (0-0.2); Basophils % 1.2 % (0.1-2.0); Eosinophils # 0.3 K/mm3 (0.0-0.4); Eosinophils % 2.9 % (0.1-12.0); Hematocrit 48.9 % (42.0-52.0); Hemoglobin 16.6 g/dL (14.1-18.0); Lymphocytes # 2.6 K/mm3 (0.7-4.5); Lymphocytes % 24.5 % (10-50); Mean Corpuscular HGB Conc 33.9 g/dL (31.8-35.4); Mean Corpuscular Volume 91.2 fl (80-94); Monocytes # 1.1 K/mm3 (0.1-1.0); Monocytes % 10.6 % (1.7-9.3); Neutrophils # 6.3 K/mm3 (1.8-7.8); Neutrophils % 60.5 % (37.0-80.0); Platelet Count 249 K/mm3 (142-424); Red Blood Count 5.36 M/mm3 (4.60-6.20); White Blood Count 10.4 K/mm3 (4.8-10.8)
[2024-10-14 07:28] LABS: Chloride 100 mmol/L (98-107)
[2024-10-14 07:29] LABS: Potassium 3.7 mmoL/L (3.5-5.1); Sodium 135 mmol/L (136-145)
[2024-10-14 07:31] LABS: Blood Urea Nitrogen 14 mg/dl (9-20); Creatinine Clearance Estimated 118 mL/min (50-200); Estimated Glomerular Filt Rate 85 ml/min (>60); GFR (African American) 103 ML/MIN (>60)
[2024-10-14 07:32] LABS: Anion Gap 5.7 mEq/L (5-15); Carbon Dioxide 33 mmol/L (22.0-30.0); Glucose 158 mg/dl (74-100)
[2024-10-14 07:44] LABS: Red Cell Distribution Width 13.6 % (11.5-17.5)
[2024-10-14] MEDS: LIDOCAINE 1% 10ML MDV 20 ML IJ (08:30)
[2024-10-14] MEDS: HEPARIN 1,000 UNITS/500ML NS (CATH LAB) 3000 UNIT IV (08:34)
[2024-10-14] MEDS: VERAPAMIL 2.5MG/ML 2ML VIAL 2.5 MG IV (08:34)
[2024-10-14] MEDS: HEPARIN 1,000 UNITS/ML 10ML VIAL (CATH LAB) 10000 UNIT IV (08:35)
[2024-10-14] MEDS: MIDAZOLAM HCL 1MG/ML 5ML VIAL 1 MG IV (08:36)
[2024-10-14] MEDS: NITROGLYCERIN 800MCG/8ML SYR (CATH LAB) 800 MCG IA (08:36)
[2024-10-14] MEDS: diphenhydrAMINE 50MG/ML VIAL 50 MG IV (08:36)
[2024-10-14] MEDS: FENTANYL 100MCG/2ML VIAL 50 MCG IV (08:36)
[2024-10-14] MEDS: HYDRALAZINE 20MG/ML VIAL 20 MG IV (09:06)
[2024-10-14] MEDS: PRASUGREL 10MG TAB 60 MG PO (09:31)
[2024-10-14] MEDS: ASPIRIN 325MG TABLET 325 MG PO (09:32)
[2024-10-14] MEDS: IOPAMIDOL-370 (76%);100ML BOTTLE 110 ML IV (09:36)
[2024-10-14 09:37] LABS: CATHL Activated Clotting Time 311 SEC (74-125)
== END 2024-10-14 12:50 | disposition home or self-care (01) ==
PROVIDERS: PCP Family Medicine; Visit Provider Internal Medicine
DX: I25.118 Atherosclerotic heart disease of native coronary artery with other forms of angina pectoris (principal); I77.1 Stricture of artery; I10 Essential (primary) hypertension; D75.1 Secondary polycythemia; E11.42 Type 2 diabetes mellitus with diabetic polyneuropathy; Z95.5 Presence of coronary angioplasty implant and graft; Z79.899 Other long term (current) drug therapy
CPT/HCPCS: 36415; 80048; 85025; 85347; 92928; 99152; 99153; C1725; C1769; C1874; C9600; J0360; J1200; J1644; J2250; J3010; Q9967

== ENCOUNTER 2024-11-09 13:53 | Outpatient (CLI) | payer MEDICAID, SELFPAY ==
[2024-11-09 14:22] LABS: Basophils # 0.1 K/mm3 (0-0.2); Basophils % 1.2 % (0.1-2.0); Eosinophils # 0.4 K/mm3 (0.0-0.4); Eosinophils % 4.1 % (0.1-12.0); Hematocrit 48.8 % (42.0-52.0); Hemoglobin 16.9 g/dL (14.1-18.0); Lymphocytes # 2.8 K/mm3 (0.7-4.5); Lymphocytes % 29.3 % (10-50); Mean Corpuscular HGB Conc 34.6 g/dL (31.8-35.4); Mean Corpuscular Hemoglobin 31.6 pg (27.0-31.2); Mean Corpuscular Volume 91.2 fl (80-94); Mean Platelet Volume 10.1 fl (7.4-10.4); Monocytes % 10.2 % (1.7-9.3); Neutrophils # 5.2 K/mm3 (1.8-7.8); Neutrophils % 54.9 % (37.0-80.0); Platelet Count 281 K/mm3 (142-424); Red Blood Count 5.35 M/mm3 (4.60-6.20); Red Cell Distribution Width 13.9 % (11.5-17.5); White Blood Count 9.4 K/mm3 (4.8-10.8)
[2024-11-09 14:33] LABS: Creatinine,Urine Random 22 mg/dL (Not Estab.)
[2024-11-09 14:39] LABS: Microalbumin/Creatinine Ratio 53.1
[2024-11-09 14:55] LABS: Hemoglobin A1C 6.8 % (4.0-6.0)
[2024-11-09 14:58] LABS: Chol/HDL Ratio 5.1 (1-3.5); Cholesterol 182 mg/dl (140-200); HDL Cholesterol 36 mg/dl (40-60); Triglycerides 313 mg/dl (30-150); VLDL Cholesterol 63 mg/dL (0-40)
[2024-11-09 15:09] LABS: Direct LDL Cholesterol 103.62 mg/dL (100-129)
[2024-11-09 15:39] LABS: HIV Combo NEGATIVE (Negative)
[2024-11-09 15:47] LABS: Hepatitis C Ab Qual. W/ RFX NEGATIVE (Negative)
[2024-11-09 16:35] LABS: Creatinine,Urine Random 20 mg/dL (Not Estab.)
[2024-11-09 16:39] LABS: Microalbumin/Creatinine Ratio 43.5
== END 2024-11-09 23:59 | disposition home or self-care (01) ==
LOC: LAB 13:54
PROVIDERS: PCP Family Medicine; Visit Provider Family Medicine
DX: I10 Essential (primary) hypertension (principal); E11.42 Type 2 diabetes mellitus with diabetic polyneuropathy; Z11.59 Encounter for screening for other viral diseases; Z11.4 Encounter for screening for human immunodeficiency virus [HIV]
CPT/HCPCS: 36415; 80061; 82043; 82570; 83036; 85025; 86803; 87389

== ENCOUNTER 2025-01-13 07:48 | Day surgery (SDC) | payer MEDICAID, SELFPAY ==
[2025-01-13 08:07] VITALS: BP 134/82; PULSE 68; RESP 18; TEMP 36.7; O2SAT 97; BMI 33.5
[2025-01-16 12:23] LABS: POC Glucose,Bedside 178 (70-110)
--- NOTE | 2025-01-16 12:59 | P.PCN_ITS ---
Findings:: Patient name: Calin Sanchez Date of : 1960 MR number: [id number] Account: [id number] Date of service: 01/13/2025 Findings:: PROCEDURE: Upright tilt table test REQUESTING PHYSICIAN: Tiffani Centeno MD INDICATION: Recurrent syncope over the last couple of years MEDS: Albuterol inhaler, allopurinol, amitriptyline, amlodipine 10 mg twice daily, aspirin 81 mg daily, bisoprolol 10 mg daily, docusate sodium, empagliflozin, glipizide, metformin, pantoprazole, prasugrel, tamsulosin, thiamine, topiramate and Diovan HCT PRE-TEST VITAL SIGNS (supine): Blood pressure 171/94, heart rate 57, O2 saturation 95% on room air PROCEDURE SUMMARY: Patient was prepared per protocol. He was then tilted into the upright position at 70 degrees for a total of 30 minutes. Test terminated at that point. Patient had no syncope or near syncopal symptoms. He had no complaints. Blood pressure in the supine position after 5 minutes noted to be 166/89 with a heart rate of 55 and oxygen saturation of 94% at 1 minute of tilting at 70 degrees patient's blood pressure dropped to 115/69 with a heart rate of 60 and O2 saturation of 90%. The blood pressure did climb back up into the 129-138/73-82 mmHg range with heart rate in the low 60s. Oxygen saturation remained in the 92-95% range. At the 30-minute danielle as the patient was being prepared for lowering back to supine position his blood pressure was noted to be 113/72, heart rate 63 with oxygen saturation 95%. Back in the supine position for 5 min, blood pressure return to the 131-149/72-97 mmHg range with heart rate in the 51-54 bpm range and saturation at 96%. COMPLICATIONS: None. CONCLUSION: Symptomatically unremarkable but blood pressure did drop signifi cantly during the first minute in the upright tilted position and just prior to returning to supine position.
== END 2025-01-13 09:38 | disposition home or self-care (01) ==
PROVIDERS: PCP Family Medicine; Visit Provider Specialist
DX: R03.1 Nonspecific low blood-pressure reading (principal); R42 Dizziness and giddiness; R55 Syncope and collapse; I10 Essential (primary) hypertension; I25.10 Atherosclerotic heart disease of native coronary artery without angina pectoris; E10.9 Type 1 diabetes mellitus without complications; Z79.84 Long term (current) use of oral hypoglycemic drugs; Z95.5 Presence of coronary angioplasty implant and graft; Z79.02 Long term (current) use of antithrombotics/antiplatelets
CPT/HCPCS: 82962; 93660

== ENCOUNTER 2025-04-24 15:52 | Outpatient (CLI) | payer MEDICAID, SELFPAY ==
--- OUTSIDE RECORDS SUMMARY | 2025-04-24 15:54 | XMS_ITS | Referral Summary ---
Author Organization [facility] ([place], [place], [place], [place]) Address [address] [place] [address] Care Team Providers Care Personal Banker Name Role Phone Daljit Mcmullen MD Primary Care Provider [phone] Allergies Active Allergy Reactions Criticality Noted Date Comments Bee Pollen 02/05/2023 Medications docusate sodium (COLACE) 100 MG capsule Take 1 capsule (100 mg total) by mouth 2 (two) times daily. Active topiramate (TOPAMAX) 50 MG tablet Take 1 tablet (50 mg total) by mouth 2 (two) times daily. Active amitriptyline (ELAVIL) 10 MG tablet Take 1 tablet (10 mg total) by mouth nightly. Active fenofibrate (LOFIBRA) 54 MG tablet Take 1 tablet (54 mg total) by mouth daily. Active glipiZIDE-metFO RMIN (METAGLIP) 5-500 mg per tablet Take 1 tablet by mouth 2 (two) times daily before meals. Active tamsulosin (FLOMAX) 0.4 mg Cap 24 hr capsule Take 1 capsule (0.4 mg total) by mouth daily. Active atorvastatin (LIPITOR) 20 MG tablet Take 1 tablet (20 mg total) by mouth daily. Active allopurinoL (ZYLOPRIM) 100 MG tablet Take 1 tablet (100 mg total) by mouth daily. Active GaviLyte-G 236-22.74-6.74 -5.86 gram solution MIX AND TAKE ACCORDING TO PACKAGE AND PRESCRIBER INSTRUCTIONS.. DRINK 240 ML (1 CUP) EVERY 15 MINUTES DIRECTED 4000 mL Active Active Problems Problem Noted Date Diagnosed Date History of colon polyps 01/05/2024 Alcohol abuse 02/05/2023 Diabetes mellitus 02/05/2023 Dyslipidemia 02/05/2023 Hypertension 02/05/2023 Obesity 02/05/2023 Obstructive sleep apnea syndrome in adult 2020 Benign intracranial hypertension 01/14/2021 Overview (02/05/2023): Drained x 2 Gastroesophageal reflux disease 02/02/2018 Overview (02/05/2023): Added automatically from request for surgery [id number] History of diverticulitis 02/02/2018 Overview (02/05/2023): Added automatically from request for surgery [id number] Social History Tobacco Use Types Packs/Day Years Used Date Smoking Tobacco: Never Smokeless Tobacco: Never Alcohol Use Standard Drinks/Week Comments Yes 0 (1 standard drink = 0.6 oz pur e alcohol) daily Family and Community Support Answer Vignesh e Recorded Help with Day to Day Activities Not on file 11/06/2023 Feeling Lonely or Isolated Not on file 11/06 Educational Attainment Answer Date Keith rded Speak language other than [place] at home Not on file 11/06/2023 Want help with school or training Not on file 11/06/2023 Substance Use Answer Date Recorded Used prescription meds for non-medical reasons N ot on file 11/06/2023 Used illegal drugs past 12 months Not on file 11/06/2023 Sex and Gender Information Value Date Recorded Sex Assigned at Not on file Legal Sex Male 11:59 AM CDT Gender Identity Not on file Sexual Orientation Not on file Last Filed Vital Signs Vital Sign Reading Time Taken Comments Blood Pressure 149/80 04/18/2024 9:16 AM EDT Pulse 65 04/18/2024 9:16 AM EDT Temperature 36.3 C (97.3 F) 04/18/2024 9:16 AM EDT Respiratory Rate 20 04/18/2024 9:16 AM EDT Oxygen Saturation 97% 04/18/2024 9:16 AM EDT Inhaled Oxygen Concentration - - Weight 108.8 kg (239 lb 12.8 oz) 04/18/2024 7:43 AM EDT Height 182.9 cm (6') 04/18/2024 7:43 AM EDT Body Mass Index 32.52 04/18/2024 7:43 AM EDT Plan of Treatment Not on file Procedures Procedure Name Priority Date/Time Associated Diagnosis Comments HM COLONOSCOPY Routine 09/21/2012 from Last 3 Months or Most Recently Relevant to Health Maintenance Results * HM COLONOSCOPY (09/21/2012) Historical Provider HEALTH MAINTENANCE Final Result from Last 3 Months or Most Recently Relevant to Health Maintenance Insurance [id number] (Home) [address] [place] [id number] [place] Care Teams Personal Banker Relationship Specialty Start Date End Date Daljit Mcmullen MD [address] [place] [address] [place] [id number] PCP - General Family Medicine 04/18/24
--- OUTSIDE RECORDS SUMMARY | 2025-04-24 15:54 | XMS_ITS | Clinical Summary ---
Author Organization [facility] ([place], [place], [place], [place]) Address [address] [place] [address] Care Team Providers Care Car Loader Name Role Phone Daljit Mcmullen MD Primary Care Provider [phone]- [phone] Allergies Active Allergy Reactions Criticality Noted Date [...] (02/05/2023): Added automatically from request for surgery [id number] History of diverticulitis 02/02/2018 Overview (02/05/2023): Added automatically from request for surgery [id number] Social History Tobacco Use Types Packs/Day Years [...] Date Keith rded Speak language other than Citizen Of [place] at home Not on file 11/06/2023 Want [...] 04/18/2024 7:43 AM EDT Plan of Treatment Health Maintenance Due Date Last Done Comments CT Colonography 1960 Diabetic Kidney Health Evalu ation (KED) 1960 FOBT/FIT 1961 Fit-DNA (Cologuard) 1960 Sigmoidoscopy 1960 Diabetic Eye Exam 1971 Depression Screening (12+) 1973 HIV Screening 1976 Hepatitis C Screening 1979 DTAP/TDAP/TD VACCINES (1 - Tdap) 1980 Pneumococcal 50+ years (1 of 2 - PCV) 1980 Shingles Vaccine (Zoster) (1 of 2) 2011 Hemoglobin A1C 02/05/2023 COVID-19 VACCINE ( season) 06/19/202403/2021, 01/01/2021 Tobacco Cessation Counseling and Screening (12+) 04/18/2025 04/18/2024 Influenza Vaccine (#1) 2025 Lipid Panel 08/15/2025 08/15/2022 Colonoscopy 04/18/2034 04/18/2024, 04/, 09/21/2012 Colorectal Cancer Screening 04/18/2034 Respiratory Syncytial Virus (RSV) Adult or (1 - 1-dose 75+ series) 2036 Procedures Procedure Name Priority Date/Time Associated Diagnosis Comments COLONOSCOPY Routine 09/21/2012 from Last 3 Months or Most Recently Relevant to Health Maintenance Results * COLONOSCOPY (09/21/2012) Historical Provider MD HEALTH MAINTENANCE Final Result from Last 3 Months or Most Recently Relevant to Health Maintenance Insurance [id number] (Home) [address] [place] [id number] [facility] [place] [address] Care Teams Car Loader Relationship Specialty Start Date End Date Daljit Mcmullen MD [address] [place] [address] [place] [id number] PCP - General Family Medicine 04/18/24
--- NOTE | 2025-04-24 16:00 | MR_ITS ---
PROCEDURE INFORMATION: Exam: MR Head Without Contrast Exam date and time: 04/24/2025 4:00 PM Age: 64 years old Clinical indication: Alteration of consciousness; Syncope and collapse; Episodes of blacking out, several episodes recently; Additional info: Falls TECHNIQUE: Imaging protocol: Magnetic resonance imaging of the head without contrast. COMPARISON: MR HEAD/BRAIN WO CON 04/02/2023 4:06 PM FINDINGS: Brain: Mild chronic brain volume loss and chronic small vessel ischemic changes. Small focus of right parietal encephalomalacia. Cerebral ventricles: There is a normal-variant cavum septum pellucidum. Bones: Unremarkable. Paranasal sinuses: Normal as visualized. No acute sinusitis. Mastoid air cells: Unchanged small left mastoid effusion. Orbital cavities: Unremarkable. Soft tissues: Unremarkable. IMPRESSION: No acute intracranial findings.
== END 2025-04-24 23:59 | disposition home or self-care (01) ==
LOC: RAD 15:53
PROVIDERS: PCP Family Medicine; Visit Provider Specialist
DX: R42 Dizziness and giddiness (principal); R55 Syncope and collapse; R29.6 Repeated falls
CPT/HCPCS: 70551

== ENCOUNTER 2025-05-12 17:46 | Observation (INO) | payer MEDICAID, SELFPAY ==
--- OUTSIDE RECORDS SUMMARY | 2022-03-19 09:31 | XMS_ITS | Encounter Summary ---
Author Organization [facility] Address [address] [place] [address] Care Team Providers Care Sock And Stocking Ironer Name Role Phone Jonn Lamar DO Primary Care Provider [phone]- [phone] Reason for Visit * (Routine) - Closed Specialty Diagnoses / Procedures Referred By Contac t Referred To Contact Radiology Diagnoses Acute left-sided low back pain without sciatica Procedures XR Spine Lumbar 2 or 3 View Jonn Lamar DO [address] [place] [address] Phone: tel: fax: Referral ID Status Reason Start Date Expiration Date Visits Re quested Visits Authorized [id number] Closed 03/19/2022 03/19/2023 1 1 Encounter Details Date Type Department Care Team (Late st Contact Info) Description 03/19/2022 9:31 AM EDT Hospital Encounter [facility] [address] [place] [id number] Social History Tobacco Use Types Packs/Day Years Used Date Smoking Tobacco: Never Smokeless Tobacco: Former Snuff Alcohol Use Standard Drinks/Week Comments Yes 10 (1 standard drink = 0.6 oz pu re alcohol) Daily PHQ-2 Answer Date Recorded Retired PHQ-9: Brief Depression Severity Measure Score 0 11/14/2022 Abuse Screen Answer Date Recorded Unsafe at Home or Work/School Not on file Feels Threatened by Someone? Not on file 06/2023 Does Anyone Keep You from Co ntacting Others or Doint Things Outside the Home? Not on file 07/27/2023 Physical Sign of Abuse Present Not on file 1 Housing Stability Answer Date Recorded Current Living Arrangements Not on file 06/2023 Potentially Unsafe Housing Conditions Not on roderick e 07/27/2023 Family and Community Support Answer Vignesh e Recorded Help with Day-to-Day Activities Not on file 07/27/2023 Lonely or Isolated Not on file 07/27/2023 Employment Answer Date Recorded Do you want help finding or keeping work or a leisa b? Not on file 07/27/2023 Disabilities Answer Date Recorded Concentrating, Remembering, or Making Decisions Difficulty Not on file 07/27/2023 Doing Errands Independently Difficulty Not on fi le 07/27/2023 Education Answer Date Recorded Help with school or training? Not on file Preferred Language Not on file 07/27/2023 PHQ-2 Answer Date Recorded Retired PHQ-9: Brief Depression Severity Measure Score 0 11/14/2022 Sex and Gender Information Value Date Recorded Sex Assigned at Not on file Legal Sex Male 3:49 PM EDT Gender Identity Not on file Sexual Orientation Not on file documented as of this encounter Plan of Treatment Not on file documented as of this encounter Procedures Procedure Name Priority Date/Time Associated Diagnosis Comments XR SPINE LUMBAR 2 OR 3 VW Routine 03/19/2022 9:43 AM EDT Acute left-sided low back pain without sciatica documented in this encounter Results * XR Spine Lumbar 2 or 3 View (03/19/2022 9:43 AM EDT) Anatomical Region Laterality Modality Spine, L-spine N/A Radiographic Payton ging 03/19/2022 10:1 7 AM EDT Impressions 03/19/2022 10:37 AM EDT Older compression injury of the superior vertebral endplate of L1 with moderate degenerative disc change at T12-L1 and L1-2. There is also moderate degenerative disc change at L4-5 and L5-S1. This report was finalized on 03/19/2022 10:[address] Tanner Ernst II, MD. Narrative 03/19/2022 10:37 AM EDT XR SPINE LUMBAR 2 OR 3 VW- REASON FOR EXAM: low back pain, L5/S1 Left. reports history trauma 15 years ago.; M54.50-Low back pain, unspecified COMPARISON: None. FINDINGS: The lumbar vertebral bodies are remarkable for mild compression of the superior vertebral endplate of L1. This does not have an acute appearance. There are bridging osteophytes at the F66-I8-8 disc space. There is degenerative disc change at L1-2 with loss of height and osteophyte formation. There is also degenerative disc change at L4-5 and most significantly at L5-S1. Procedure Note Tanner Ernst II, MD - 03/19/2022 XR SPINE LUMBAR 2 OR 3 VW- REASON FOR EXAM: low back pain, L5/S1 Left. reports history trauma 15 years ago.; M54.50-Low back pain, unspecified COMPARISON: None. FINDINGS: The lumbar vertebral bodies are remarkable for mild compression of the superior vertebral endplate of L1. This does not have an acute appearance. There are bridging osteophytes at the T22-E0-9 disc space. There is degenerative disc change at L1-2 with loss of height and osteophyte formation. There is also degenerative disc change at L4-5 and most significantly at L5-S1. IMPRESSION: Older compression injury of the superior vertebral endplate of L1 with moderate degenerative disc change at T12-L1 and L1-2. There is also moderate degenerative disc change at L4-5 and L5-S1. This report was finalized on 03/19/2022 10:[address] Tanner Ernst II, MD. Jonn Lamar DO IMG DIAGNOSTIC IMAGING ORD ERABLES Final Result documented in this encounter Visit Diagnoses Not on filedocumented in this encounter Care Teams Sock And Stocking Ironer Relationship Specialty Start Date End Date Jonn Lamar DO [address] [place] [address] PCP - General Family Medicine 06/19/21 documented as of this encounter
--- OUTSIDE RECORDS SUMMARY | 2022-03-19 09:31 | XMS_ITS | Encounter Summary ---
Author Organization [facility] Address [address] [place] [address] Care Team Providers Care Video And Sound Recorder Name Role Phone Jonn Lamar DO Primary Care Provider [phone]- [phone] Reason for Visit * (Routine) - Closed Specialty Diagnoses / Procedures Referred By Contac t Referred To Contact Radiology Diagnoses Acute left-sided low back pain without sciatica Procedures XR Spine Lumbar 2 or 3 View Jonn Lamar DO [address] [place] [address] Phone: tel: fax: Referral ID Status Reason Start Date Expiration Date Visits Re quested Visits Authorized [id number] Closed 03/19/2022 03/19/2023 1 1 Encounter Details Date Type Department Care Team (Late st Contact Info) Description 03/19/2022 9:31 AM EDT Hospital Encounter [facility] [address] [place] [id number] Social History Tobacco Use Types Packs/Day Years [...] appearance. There are bridging osteophytes at the F62-U1-5 disc space. There is degenerative disc change [...] appearance. There are bridging osteophytes at the H62-X2-4 disc space. There is degenerative disc change [...] on filedocumented in this encounter Care Teams Video And Sound Recorder Relationship Specialty Start Date End Date Jonn Lamar DO [address] [place] [address] PCP - General Family Medicine 06/19/21 documented as of this encounter
[2025-05-12] VITALS (10 sets, daily range): BP systolic 123–157; BP diastolic 70–93; PULSE 60–78; RESP 15–24; TEMP 36.6–36.9; O2SAT 92–98; BMI 33.5; BMI 34.2
--- NOTE | 2025-05-12 17:52 | HMH.EDGENADL ---
Discharge Plan Disposition Patient Disposition: Admitted Condition: Good Clinical Impressions Clinical Impression: Intractable back pain, Alcohol abuse, Hypokalemia Discharge ED Provider: Rvaindra Antoine General Adult HPI <XAVI Cohi - Last Filed: 05/12/25 21:06> General Chief complaint: Back Pain/Injury Stated complaint: AO 05/12/25 1600 Feel out of chair back injury Time Seen by Provider: 05/12/25 17:52 History of Present Illness HPI narrative: Patient presents for evaluation of back pain after a fall. Patient was standing on a chair changing a fly strip when he lost his balance and fell off the chair. He landed on his back. He initially was not able to get up however ultimately was able to ambulate to his private vehicle and come to the ER for evaluation. He denies any loss of motor or sensory numbness or tingling but reports mid and low back pain primarily in the midline and right side. He did not lose consciousness has no neck pain or headache. Related Data Home Medications ?Medication ?Instructions ?Recorded ?Confirmed albuterol 90 mcg/actuation aerosol 90 mcg inhalation NEEDED PRN 05/13/25 05/13/25 inhaler Asthma allopurinol 100 mg tablet 100 mg PO DAILY 05/13/25 05/13/25 amitriptyline 50 mg tablet 50 mg PO DAILY 05/13/25 05/13/25 docusate sodium 100 mg capsule 100 mg PO BID 05/13/25 05/13/25 empagliflozin 25 mg tablet 25 mg PO DAILY 05/13/25 05/13/25 (Jardiance) pantoprazole 40 mg tablet,delayed 40 mg PO DAILY 05/13/25 05/13/25 release tamsulosin 0.4 mg capsule 0.4 mg PO POSTTR 05/13/25 05/13/25 thiamine HCl (vitamin B1) 100 mg 100 mg PO TID 05/13/25 05/13/25 capsule topiramate 50 mg tablet 50 mg PO BID 05/13/25 05/13/25 Previous Rx's ?Medication ?Instructions ?Recorded blood sugar diagnostic (OneTouch #100 ea 09/13/24 Ultra Test strips) lancets 33 gauge #100 ea 09/13/24 aspirin 81 mg chewable tablet 81 mg PO DAILY 90 days #90 tabs 11/02/24 prasugrel HCl 10 mg tablet 10 mg PO DAILY 90 days #90 tabs 11/02/24 (Effient) pravastatin 40 mg tablet 40 mg PO DAILY #90 tabs 11/09/24 amlodipine 10 mg tablet 10 mg PO BID HTN 90 days #180 tabs 12/05/24 bisoprolol fumarate 10 mg tablet 10 mg PO DAILY 90 days #90 tabs 02/14/25 valsartan 320 1 tab PO DAILY 90 days #90 tabs 02/14/25 mg-hydrochlorothiazide 25 mg tablet (Diovan HCT) semaglutide 0.25 mg or 0.5 mg (2 0.25 mg (0.368 mL) SQ WEEKLY #3 mL 04/04/25 mg/3 mL) subcutaneous pen injector ([employer]) blood sugar diagnostic (Blood #50 ea 04/26/25 Glucose Test strips) blood-glucose meter (Blood Glucose #1 ea 04/26/25 Monitoring kit) lancets ([employer] Lancets) #100 ea 04/26/25 Allergies Allergy/AdvReac Type Severity Reaction Status Date / Time bee venom protein (honey bee) Allergy Swelling Verified 05/12/25 22:08 of Lip/Tongue/Throat gabapentin AdvReac Severe sucidal Verified 03/29/25 09:54 thoughts [facility] <XAVI Choi - Last Filed: 05/12/25 21:06> [facility] Disclaimer: The information contained in this section may have been updated after the patient was seen, as this information can be updated by other users. Medical History CAD (coronary artery disease) Hyperlipidemia Angina pectoris Hx of deep venous thrombosis Abnormal electrocardiogram [ECG] [EKG] Polycythemia BPH (benign prostatic hyperplasia) Gout GERD (gastroesophageal reflux disease) Diabetes mellitus Hypertension Surgical History History of heart artery stent History of colonoscopy History of tonsillectomy Family History Father Cancer Brother Diabetes Lymphoma Factor V Leiden Thoracic aneurysm, ruptured Grandmother Stroke Grandfather Stroke Mother FH: brain aneurysm Social History Smoking Status: Current every day smoker alcohol intake: current alcohol intake frequency: 3 or more drinks per day substance use type: marijuana current occupational status: retired Travel in the last 8 weeks?: None household members: spouse housing: house marital status: Have you lived/traveled outside [place] in past 30 days?: No Contact w/someone who lives/traveled outside US past 30 days?: No Exposure to someone with infectious disease in past 14 days?: No Do you have a fever (greater than 100.4 F or 38 C)?: No Have you tested positive for COVID-19?: No Exposed to someone with COVID-19 in past 14 days?: No Do you have a sore throat?: No Do you have a cough?: No Do you have any weakness?: No Do you have any diarrhea?: No Are you experiencing any unusual bleeding?: No Do you have any muscle aches/pain?: No Do you have any abdominal pain?: No Are you experiencing loss of taste or smell?: No Other Medical History Have you received the Flu Vaccine for this season: No Have you received the Pneumonia Vaccine: Yes <XAVI Choi - Last Filed: 05/12/25 21:06> ROS Obtained: Yes Systems reviewed as appropriate & no additional complaints except as documented Physical Exam <XAVI Choi - Last Filed: 05/12/25 21:06> General General appearance: alert and in no apparent distress Respiratory Respiratory exam: Present normal lung sounds bilaterally Cardiovascular Cardiovascular exam: Present regular rate Neurological Exam Neurological exam: Present alert, oriented X3 and CN II-XII intact Medical Decision Making <XAVI Choi - Last Filed: 05/12/25 21:06> Medical Records Medical records reviewed: Yes I reviewed the patient's medical records. Screening: Per USPSTF and CDC recommendations, given the prevalence of disease in our region, it is our hospital?s policy to screen for HIV and viral Hepatitis for all patients aged 18 and over and those with ongoing risk factors. Richi Inquiry Pt receiving controlled substance: No Vital Signs: 05/12/25 18:08 05/12/25 19:01 05/12/25 19:16 Temperature 98.5 F Temperature Source Oral Pulse Rate 60 60 Pulse Rate [Right Brachial] 68 Respiratory Rate 17 Blood Pressure 140/71 152/92 H Blood Pressure [Right Arm] 123/76 Blood Pressure Mean Blood Pressure Mean [Right Arm] 91 Blood Pressure Source [Right Arm] Automatic Cuff Blood Pressure Position Blood Pressure Position [Right Arm] Sitting 02 Sat by Pulse Oximetry 96 95 96 Oxygen Delivery Method Room Air Room Air 05/12/25 20:12 05/12/25 20:15 05/12/25 20:30 Temperature Temperature Source Pulse Rate 68 68 68 Pulse Rate [Right Brachial] Respiratory Rate 24 24 24 Blood Pressure 145/86 H 157/93 H 136/73 Blood Pressure [Right Arm] Blood Pressure Mean 105 114 94 Blood Pressure Mean [Right Arm] Blood Pressure Source [Right Arm] Blood Pressure Position Blood Pressure Position [Right Arm] 02 Sat by Pulse Oximetry 98 98 98 Oxygen Delivery Method 05/12/25 20:45 05/12/25 21:00 05/12/25 21:12 Temperature 97.8 F Temperature Source Oral Pulse Rate 68 78 Pulse Rate [Right Brachial] Respiratory Rate 15 18 Blood Pressure 147/89 H 131/84 138/78 Blood Pressure [Right Arm] Blood Pressure Mean 106 106 Blood Pressure Mean [Right Arm] Blood Pressure Source [Right Arm] Blood Pressure Position Supine Blood Pressure Position [Right Arm] 02 Sat by Pulse Oximetry 98 Oxygen Delivery Method Room Air Lab Data Lab results reviewed: Yes I reviewed the patient's lab results. Lab Results 05/12/25 18:33: WBC 10.6, RBC 5.09, Hgb 16.3, Hct 46.6, MCV 91.6, MCH 32.0 H, MCHC 35.0, RDW 12.8, Plt Count 296, MPV 9.9, Neut % (Auto) 57.5, Lymph % (Auto) 29.2, [place] % (Auto) 7.3, Eos % (Auto) 4.3, Baso % (Auto) 1.3, Neut # (Auto) 6.1, Lymph # (Auto) 3.1, [place] # (Auto) 0.8, Eos # (Auto) 0.5 H, Baso # (Auto) 0.1, PT 10.3, INR 0.92, Sodium 129 L, Potassium 2.9 L*, Chloride 92 L, Carbon Dioxide 25, Anion Gap 14.9, BUN 13, Creatinine 0.70, Estimated Creat Clear 115, Estimated GFR 114, Est GFR ( Amer) 137, Glucose 183 H, Hemoglobin A1c 7.9 H, Calcium 9.1, Total Bilirubin 0.4, AST 37, ALT 25, Alkaline Phosphatase 97, Total Protein 8.3 H, Albumin 4.1, Globulin 4.2 H, Albumin/Globulin Ratio 1.0 L 05/12/25 20:05: Urine Color Yellow, Urine Appearance Clear, Urine pH 6.0, Ur Specific [place] <= 1.005, Urine Protein Negative, Urine Glucose (UA) 3+, Urine Ketones Negative, Urine Blood Negative, Urine Nitrate Negative, Urine Bilirubin Negative, Urine Urobilinogen 0.2, Ur Leukocyte Esterase Negative, Urine WBC Occasional, Ur Squamous Epith Cells Occasional 05/13/25 06:40 05/13/25 06:40 Orders (Tests/Meds): ED MEDICATIONS Generic Name Dose Route Start Last Admin Trade Name Freq PRN Reason Stop Dose Admin Albuterol Sulfate 2 puff 05/12/25 22:38 Albuterol-Hfa 90mcg/Puff Inhaler 8gm IH 06/11/25 22:37 Q6HP PRN Shortness Of Breath Or Wheezing Allopurinol 100 mg 05/13/25 09:00 05/13/25 08:26 Allopurinol 100mg Tablet PO 06/12/25 08:59 100 mg BID LM Administration Aspirin 81 mg 05/13/25 09:00 05/13/25 08:26 Aspirin 81mg Chewable Tablet PO 06/12/25 08:59 81 mg DAILY LM Administration Bisoprolol Fumarate 10 mg 05/13/25 09:00 05/13/25 08:26 Bisoprolol 5mg Tablet PO 06/12/25 08:59 10 mg DAILY LM Administration Docusate Sodium 100 mg 05/13/25 09:00 05/13/25 08:26 Docusate Sodium 100 Mg Capsule PO 06/12/25 08:59 100 mg DAILY LM Administration Empagliflozin 25 mg 05/13/25 09:00 05/13/25 09:07 Empagliflozin 25mg Tablet PO 06/12/25 08:59 25 mg DAILY LM Administration Enoxaparin Sodium 40 mg 05/13/25 09:00 05/13/25 08:26 Enoxaparin 40mg/0.4ml Syringe SUBCUT 06/12/25 08:59 40 mg DAILY LM Administration Hydromorphone HCl 1 mg 05/12/25 20:56 Hydromorphone 2mg/Ml Syringe IV 06/11/25 20:55 Q4HP PRN Severe Pain (7-10) Insulin Human Lispro 0 unit 05/12/25 22:36 05/13/25 05:24 Humalog 100 Units/Ml 10ml Vial (Ssi) SUBCUT 06/11/25 22:35 4 unit ACHS LM Administration Protocol Ketorolac Tromethamine 30 mg 05/12/25 20:56 05/13/25 05:25 Ketorolac 30mg/Ml Vial IV 05/17/25 20:55 30 mg Q6HP PRN Administration Moderate Pain (4-6) Pantoprazole Sodium 40 mg 05/12/25 22:40 05/12/25 23:00 Pantoprazole 40mg Tablet PO 06/11/25 22:39 Not Given HS LM Polyethylene Glycol 17 gm 05/13/25 09:00 05/13/25 08:30 Polyethylene Glycol 3350 17 Gm Packet PO 06/12/25 08:59 17 gm DAILY LM Administration Prasugrel 10 mg 05/13/25 09:00 05/13/25 09:07 Prasugrel 10mg Tab PO 06/12/25 08:59 10 mg DAILY LM Administration Tamsulosin HCl 0.4 mg 05/12/25 22:40 05/12/25 23:05 Tamsulosin 0.4mg Capsule PO 06/11/25 22:39 0.4 mg HS LM Administration Discontinued Medications Generic Name Dose Route Start Last Admin Trade Name Freq PRN Reason Stop Dose Admin Acetaminophen 1,000 mg 05/12/25 18:00 05/12/25 18:40 Acetaminophen 500mg Tab PO 05/12/25 18:01 1,000 mg ONCE ONE Administration Dexamethasone Sodium Phosphate 10 mg 05/12/25 18:00 05/12/25 18:39 Dexamethasone 4mg/Ml 5ml Mdv IV 05/12/25 18:01 10 mg ONCE ONE Administration Hydromorphone HCl 1 mg 05/12/25 20:16 05/12/25 20:42 Hydromorphone 2mg/Ml Syringe IV 05/12/25 20:17 1 mg ONCE ONE Administration Sodium Chloride 1,000 mls @ 999 mls/hr 05/12/25 18:00 05/12/25 18:39 Sod Chlor 0.9% 1000ml Bag IV 05/12/25 19:00 999 mls/hr .Q1H1M ONE Administration Potassium Chloride/Water 100 mls @ 50 mls/hr 05/12/25 19:15 05/13/25 00:44 Potassium Chloride 20meq/100ml Ivpb IV 05/13/25 01:14 50 mls/hr Q2H LM Administration Iopamidol 160 ml 05/12/25 19:47 05/12/25 19:47 Iopamidol-370 (76%);100ml Bottle IV 05/12/25 19:48 160 ml ONCE ONE Administration Methocarbamol 500 mg 05/12/25 18:00 05/12/25 18:40 Methocarbamol 500mg Tablet PO 05/12/25 18:01 500 mg ONCE ONE Administration Miscellaneous 1 unit 05/12/25 22:38 05/12/25 23:00 Aerochamber/Optihaler MC 05/12/25 22:39 Not Given ONCE ONE Ondansetron HCl 4 mg 05/12/25 18:00 05/12/25 18:39 Ondansetron 4mg/2ml Vial IV 05/12/25 18:01 4 mg ONCE ONE Administration Oxycodone HCl 5 mg 05/12/25 18:00 05/12/25 18:40 Oxycodone 5mg Immediate Release Tablet PO 05/12/25 18:01 5 mg ONCE ONE Administration Pantoprazole Sodium 40 mg 05/12/25 21:00 05/12/25 22:03 Pantoprazole 40mg Tablet PO 06/11/25 20:59 40 mg HS LM Administration Potassium Chloride 60 meq 05/12/25 19:15 05/12/25 20:07 Potassium Chloride 20meq Tab PO 05/12/25 19:16 60 meq ONCE ONE Administration Sodium Chloride 50 ml 05/12/25 19:47 05/12/25 19:48 0.9 % Sodium Chloride 50 Ml Vial IV 05/12/25 19:48 50 ml ONCE ONE Administration Sodium Chloride 10 ml 05/12/25 19:47 05/12/25 19:47 Sodium Chloride 0.9% 10ml Syr (Rad Only) IV 05/12/25 19:48 10 ml ONCE ONE Administration ORDERS Category Date Time Status CT angio abd/pel - TRAUMA Stat Cat Scan 05/12/25 18:[address] angio chest - dissection Stat Cat Scan 05/12/25 18:[address] angio head Stat Cat Scan 05/12/25 18:[address] angio neck Stat Cat Scan 05/12/25 18:[address] bony pelvis Stat Cat Scan 05/12/25 18:[address] cervical spine wo con Stat Cat Scan 05/12/25 18:[address] head/brain wo con Stat Cat Scan 05/12/25 18:[address] lumbar spine wo con Stat Cat Scan 05/12/25 18:[address] thoracic spine wo con Stat Cat Scan 05/12/25 18:01 Completed CBC w/Auto Diff [Complete Blood Count Auto Diff] Stat Lab 05/12/25 18:33 Completed CMP [Comprehensive Metabolic Panel] Stat Lab 05/12/25 18:33 Completed Complete Blood Count Auto Diff AMLAB Lab 05/13/25 06:40 Completed Comprehensive Metabolic Panel AMLAB Lab 05/13/25 06:40 Completed INR [Prothrombin Time INR] Stat Lab 05/12/25 18:33 Completed Magnesium AMLAB Lab 05/13/25 06:40 Completed Phosphorous AMLAB Lab 05/13/25 06:40 Completed UA [Urinalysis and Microscopic] Stat Lab 05/12/25 20:05 Completed Medical Decision Narrative: In summary patient is a 65-year-old male who presents to the emergency department for evaluation of a fall and back pain. Patient is hemodynamically stable upon arrival, afebrile. Physical exam is remarkable for pain in the thoracic and lumbar spine and associated paraspinous musculature on palpation however there is no palpable bony deformities contusions abrasions. Patient is able to move all 4 extremities and has no focal neurologic deficits.. Differential diagnosis includes muscle strain versus contusion versus spinal fracture versus pelvic fracture etc. Initial workup will be conducted with hematologic labs and ED trauma scans. Initial interventions include crystalloid bolus Tylenol oxycodone Robaxin. Initial workup reviewed by me and his hematologic labs are significant for normal white count normal H&H with no neutrophilic shift, INR 0.92, sodium is 129 potassium is 2.9 chlorides 92 glucose is 183 and the remainder of his hematologic labs are nonactionable urinalysis is bland and my informal interpretation of all of his imaging shows no acute bony fracture or vascular injury.. Upon repeat evaluation patient continues to have pain at a 10 out of 10 despite initial interventions. I have given a milligram of Dilaudid as well as started replating his potassium and will reassess. Also had interactive discussion with the patient about his alcohol history and patient reports that he drinks about a 12 pack a day. I reassessed patient after Dilaudid and he still reports his pain is an 8 out of 10 given this I had interactive discussion with hospital medicine regarding patient presentation MIKE management he will be admitted for further evaluation and care. <Ravindra Antoine MD - Last Filed: 05/13/25 09:58> Vital Signs: 05/12/25 18:08 05/12/25 19:01 05/12/25 19:16 Temperature 98.5 F Temperature Source Oral Pulse Rate 60 60 Pulse Rate [Right Brachial] 68 Respiratory Rate 17 Blood Pressure 140/71 152/92 H Blood Pressure [Right Arm] 123/76 Blood Pressure Mean Blood Pressure Mean [Right Arm] 91 Blood Pressure Source [Right Arm] Automatic Cuff Blood Pressure Position Blood Pressure Position [Right Arm] Sitting 02 Sat by Pulse Oximetry 96 95 96 Oxygen Delivery Method Room Air Room Air 05/12/25 20:12 05/12/25 20:15 05/12/25 20:30 Temperature Temperature Source Pulse Rate 68 68 68 Pulse Rate [Right Brachial] Respiratory Rate 24 24 24 Blood Pressure 145/86 H 157/93 H 136/73 Blood Pressure [Right Arm] Blood Pressure Mean 105 114 94 Blood Pressure Mean [Right Arm] Blood Pressure Source [Right Arm] Blood Pressure Position Blood Pressure Position [Right Arm] 02 Sat by Pulse Oximetry 98 98 98 Oxygen Delivery Method 05/12/25 20:45 05/12/25 21:00 05/12/25 21:12 Temperature 97.8 F Temperature Source Oral Pulse Rate 68 78 Pulse Rate [Right Brachial] Respiratory Rate 15 18 Blood Pressure 147/89 H 131/84 138/78 Blood Pressure [Right Arm] Blood Pressure Mean 106 106 Blood Pressure Mean [Right Arm] Blood Pressure Source [Right Arm] Blood Pressure Position Supine Blood Pressure Position [Right Arm] 02 Sat by Pulse Oximetry 98 Oxygen Delivery Method Room Air Lab Data Lab Results 05/12/25 18:33: WBC 10.6, RBC 5.09, Hgb 16.3, Hct 46.6, MCV 91.6, MCH 32.0 H, MCHC 35.0, RDW 12.8, Plt Count 296, MPV 9.9, Neut % (Auto) 57.5, Lymph % (Auto) 29.2, [place] % (Auto) 7.3, Eos % (Auto) 4.3, Baso % (Auto) 1.3, Neut # (Auto) 6.1, Lymph # (Auto) 3.1, [place] # (Auto) 0.8, Eos # (Auto) 0.5 H, Baso # (Auto) 0.1, PT 10.3, INR 0.92, Sodium 129 L, Potassium 2.9 L*, Chloride 92 L, Carbon Dioxide 25, Anion Gap 14.9, BUN 13, Creatinine 0.70, Estimated Creat Clear 115, Estimated GFR 114, Est GFR ( Amer) 137, Glucose 183 H, Hemoglobin A1c 7.9 H, Calcium 9.1, Total Bilirubin 0.4, AST 37, ALT 25, Alkaline Phosphatase 97, Total Protein 8.3 H, Albumin 4.1, Globulin 4.2 H, Albumin/Globulin Ratio 1.0 L 05/12/25 20:05: Urine Color Yellow, Urine Appearance Clear, Urine pH 6.0, Ur Specific [place] <= 1.005, Urine Protein Negative, Urine Glucose (UA) 3+, Urine Ketones Negative, Urine Blood Negative, Urine Nitrate Negative, Urine Bilirubin Negative, Urine Urobilinogen 0.2, Ur Leukocyte Esterase Negative, Urine WBC Occasional, Ur Squamous Epith Cells Occasional Orders (Tests/Meds): ED MEDICATIONS Generic Name Dose Route Start Last Admin Trade Name Freq PRN Reason Stop Dose Admin Albuterol Sulfate 2 puff 05/12/25 22:38 Albuterol-Hfa 90mcg/Puff Inhaler 8gm IH 06/11/25 22:37 Q6HP PRN Shortness Of Breath Or Wheezing Allopurinol 100 mg 05/13/25 09:00 05/13/25 08:26 Allopurinol 100mg Tablet PO 06/12/25 08:59 100 mg BID LM Administration Aspirin 81 mg 05/13/25 09:00 05/13/25 08:26 Aspirin 81mg Chewable Tablet PO 06/12/25 08:59 81 mg DAILY LM Administration Bisoprolol Fumarate 10 mg 05/13/25 09:00 05/13/25 08:26 Bisoprolol 5mg Tablet PO 06/12/25 08:59 10 mg DAILY LM Administration Docusate Sodium 100 mg 05/13/25 09:00 05/13/25 08:26 Docusate Sodium 100 Mg Capsule PO 06/12/25 08:59 100 mg DAILY LM Administration Empagliflozin 25 mg 05/13/25 09:00 05/13/25 09:07 Empagliflozin 25mg Tablet PO 06/12/25 08:59 25 mg DAILY LM Administration Enoxaparin Sodium 40 mg 05/13/25 09:00 05/13/25 08:26 Enoxaparin 40mg/0.4ml Syringe SUBCUT 06/12/25 08:59 40 mg DAILY LM Administration Hydromorphone HCl 1 mg 05/12/25 20:56 Hydromorphone 2mg/Ml Syringe IV 06/11/25 20:55 Q4HP PRN Severe Pain (7-10) Insulin Human Lispro 0 unit 05/12/25 22:36 05/13/25 05:24 Humalog 100 Units/Ml 10ml Vial (Ssi) SUBCUT 06/11/25 22:35 4 unit ACHS LM Administration Protocol Ketorolac Tromethamine 30 mg 05/12/25 20:56 05/13/25 05:25 Ketorolac 30mg/Ml Vial IV 05/17/25 20:55 30 mg Q6HP PRN Administration Moderate Pain (4-6) Pantoprazole Sodium 40 mg 05/12/25 22:40 05/12/25 23:00 Pantoprazole 40mg Tablet PO 06/11/25 22:39 Not Given HS LM Polyethylene Glycol 17 gm 05/13/25 09:00 05/13/25 08:30 Polyethylene Glycol 3350 17 Gm Packet PO 06/12/25 08:59 17 gm DAILY LM Administration Prasugrel 10 mg 05/13/25 09:00 05/13/25 09:07 Prasugrel 10mg Tab PO 06/12/25 08:59 10 mg DAILY LM Administration Tamsulosin HCl 0.4 mg 05/12/25 22:40 05/12/25 23:05 Tamsulosin 0.4mg Capsule PO 06/11/25 22:39 0.4 mg HS LM Administration Discontinued Medications Generic Name Dose Route Start Last Admin Trade Name Freq PRN Reason Stop Dose Admin Acetaminophen 1,000 mg 05/12/25 18:00 05/12/25 18:40 Acetaminophen 500mg Tab PO 05/12/25 18:01 1,000 mg ONCE ONE Administration Dexamethasone Sodium Phosphate 10 mg 05/12/25 18:00 05/12/25 18:39 Dexamethasone 4mg/Ml 5ml Mdv IV 05/12/25 18:01 10 mg ONCE ONE Administration Hydromorphone HCl 1 mg 05/12/25 20:16 05/12/25 20:42 Hydromorphone 2mg/Ml Syringe IV 05/12/25 20:17 1 mg ONCE ONE Administration Sodium Chloride 1,000 mls @ 999 mls/hr 05/12/25 18:00 05/12/25 18:39 Sod Chlor 0.9% 1000ml Bag IV 05/12/25 19:00 999 mls/hr .Q1H1M ONE Administration Potassium Chloride/Water 100 mls @ 50 mls/hr 05/12/25 19:15 05/13/25 00:44 Potassium Chloride 20meq/100ml Ivpb IV 05/13/25 01:14 50 mls/hr Q2H LM Administration Iopamidol 160 ml 05/12/25 19:47 05/12/25 19:47 Iopamidol-370 (76%);100ml Bottle IV 05/12/25 19:48 160 ml ONCE ONE Administration Methocarbamol 500 mg 05/12/25 18:00 05/12/25 18:40 Methocarbamol 500mg Tablet PO 05/12/25 18:01 500 mg ONCE ONE Administration Miscellaneous 1 unit 05/12/25 22:38 05/12/25 23:00 Aerochamber/Optihaler MC 05/12/25 22:39 Not Given ONCE ONE Ondansetron HCl 4 mg 05/12/25 18:00 05/12/25 18:39 Ondansetron 4mg/2ml Vial IV 05/12/25 18:01 4 mg ONCE ONE Administration Oxycodone HCl 5 mg 05/12/25 18:00 05/12/25 18:40 Oxycodone 5mg Immediate Release Tablet PO 05/12/25 18:01 5 mg ONCE ONE Administration Pantoprazole Sodium 40 mg 05/12/25 21:00 05/12/25 22:03 Pantoprazole 40mg Tablet PO 06/11/25 20:59 40 mg HS LM Administration Potassium Chloride 60 meq 05/12/25 19:15 05/12/25 20:07 Potassium Chloride 20meq Tab PO 05/12/25 19:16 60 meq ONCE ONE Administration Sodium Chloride 50 ml 05/12/25 19:47 05/12/25 19:48 0.9 % Sodium Chloride 50 Ml Vial IV 05/12/25 19:48 50 ml ONCE ONE Administration Sodium Chloride 10 ml 05/12/25 19:47 05/12/25 19:47 Sodium Chloride 0.9% 10ml Syr (Rad Only) IV 05/12/25 19:48 10 ml ONCE ONE Administration ORDERS Category Date Time Status CT angio abd/pel - TRAUMA Stat Cat Scan 05/12/25 18:[address] angio chest - dissection Stat Cat Scan 05/12/25 18:[address] angio head Stat Cat Scan 05/12/25 18:[address] angio neck Stat Cat Scan 05/12/25 18:[address] bony pelvis Stat Cat Scan 05/12/25 18:[address] cervical spine wo con Stat Cat Scan 05/12/25 18:[address] head/brain wo con Stat Cat Scan 05/12/25 18:[address] lumbar spine wo con Stat Cat Scan 05/12/25 18:[address] thoracic spine wo con Stat Cat Scan 05/12/25 18:01 Completed CBC w/Auto Diff [Complete Blood Count Auto Diff] Stat Lab 05/12/25 18:33 Completed CMP [Comprehensive Metabolic Panel] Stat Lab 05/12/25 18:33 Completed Complete Blood Count Auto Diff AMLAB Lab 05/13/25 06:40 Completed Comprehensive Metabolic Panel AMLAB Lab 05/13/25 06:40 Completed INR [Prothrombin Time INR] Stat Lab 05/12/25 18:33 Completed Magnesium AMLAB Lab 05/13/25 06:40 Completed Phosphorous AMLAB Lab 05/13/25 06:40 Completed UA [Urinalysis and Microscopic] Stat Lab 05/12/25 20:05 Completed Medical Decision Narrative: In summary patient is a 65-year-old male who presents to the emergency department for evaluation of a fall and back pain. Patient is hemodynamically stable upon arrival, afebrile. Physical exam is remarkable for pain in the thoracic and lumbar spine and associated paraspinous musculature on palpation however there is no palpable bony deformities contusions abrasions. Patient is able to move all 4 extremities and has no focal neurologic deficits.. Differential diagnosis includes muscle strain versus contusion versus spinal fracture versus pelvic fracture etc. Initial workup will be conducted with hematologic labs and ED trauma scans. Initial interventions include crystalloid bolus Tylenol oxycodone Robaxin. Initial workup reviewed by me and his hematologic labs are significant for normal white count normal H&H with no neutrophilic shift, INR 0.92, sodium is 129 potassium is 2.9 chlorides 92 glucose is 183 and the remainder of his hematologic labs are nonactionable urinalysis is bland and my informal interpretation of all of his imaging shows no acute bony fracture or vascular injury.. Upon repeat evaluation patient continues to have pain at a 10 out of 10 despite initial interventions. I have given a milligram of Dilaudid as well as started replating his potassium and will reassess. Also had interactive discussion with the patient about his alcohol history and patient reports that he drinks about a 12 pack a day. I reassessed patient after Dilaudid and he still reports his pain is an 8 out of 10 given this I had interactive discussion with hospital medicine regarding patient presentation [facility] management he will be admitted for further evaluation and care. I was consulted by the NICOLE, and we discussed the complexity of the problems being addressed. I approve the treatment and management plan for this patient's care in the emergency department, thus performing a substantive portion of the medical decision making. Ravindra Antoine MD Critical Care <XAVI Choi - Last Filed: 05/12/25 21:06> Critical Care Time Critical Care Time: Yes Attestation: On 05/12/25, the high probability of a clinically significant, sudden or life threatening deterioration of the following system(s) required my full and direct attention, intervention and personal management. The time I documented below is in addition to time spent performing reported procedures but includes the following listed in this critical care notation. Total Time Total Critical Care Time: 30
--- OUTSIDE RECORDS SUMMARY | 2025-05-12 18:00 | XMS_ITS | Referral Summary ---
Author Organization [employer] ([place], [place], [place], [place]) Address [address] [place] [address] Care Team Providers Care Box Fabricator Name Role Phone Daljit Mcmullen MD Primary Care Provider [phone]- [phone] Allergies Active Allergy Reactions Criticality Noted Date [...] (02/05/2023): Added automatically from request for surgery [id number] History of diverticulitis 02/02/2018 Overview (02/05/2023): Added automatically from request for surgery [id number] Social History Tobacco Use Types Packs/Day Years [...] Date Keith rded Speak language other than Faroese at home Not on file 11/06/2023 Want [...] Most Recently Relevant to Health Maintenance Insurance [id number] (Home) [address] [place] [id number] [facility] Care Teams Box Fabricator Relationship Specialty Start Date End Date Daljit Mcmullen MD [address] [place] [address] [place] [id number] PCP - General Family Medicine 04/18/24
--- OUTSIDE RECORDS SUMMARY | 2025-05-12 18:00 | XMS_ITS | Clinical Summary ---
Author Organization [employer] ([place], [place], [place], [place]) Address [address] [place] [address] Care Team Providers Care Head Charrer Name Role Phone Daljit Mcmullen MD Primary Care Provider [phone]- [phone] Allergies Active Allergy Reactions Criticality Noted Date [...] (02/05/2023): Added automatically from request for surgery [id number] History of diverticulitis 02/02/2018 Overview (02/05/2023): Added automatically from request for surgery [id number] Social History Tobacco Use Types Packs/Day Years [...] Date Keith rded Speak language other than Portuguese at home Not on file 11/06/2023 Want [...] Most Recently Relevant to Health Maintenance Insurance [id number] (Home) [address] [place] [id number] [facility] Care Teams Head Charrer Relationship Specialty Start Date End Date Daljit Mcmullen MD [address] [place] [address] [place] [id number] PCP - General Family Medicine 04/18/24
--- OUTSIDE RECORDS SUMMARY | 2025-05-12 18:00 | XMS_ITS | Clinical Summary ---
Author Organization [facility] Address [address] [place] [address] Care Team Providers Care Produce Shipper Name Role Phone Jonn Lamar DO Primary Care Provider [phone]- [phone] Allergies Active Allergy Reactions Criticality Noted Date Comments Bee Venom Anaphylaxis High 04/23/2016 Medications glucose blood test stripIndications:T ype 2 diabetes mellitus with diabetic polyneuropathy, without long-term current use of insulin For bid testing E11.65 100 each 12 2 Active glucose monitor monitoring kitIndications:Typ e 2 diabetes mellitus with diabetic polyneuropathy, without long-term current use of insulin 1 each As Needed (check blood sugar daily). 1 each 2 Active Lancets (freestyle) lancetsIndications :Type 2 diabetes mellitus with diabetic polyneuropathy, without long-term current use of insulin BID testing E11.65 100 each 12 2 Active albuterol sulfate HFA 108 (90 Base) MCG/ACT inhalerIndications :Seasonal allergic rhinitis due to pollen Inhale 2 puffs Every 4 (Four) Hours As Needed for Wheezing or Shortness of Air. 18 g 5 3 Active allopurinol (ZYLOPRIM) 100 MG tabletIndications: Idiopathic gout, unspecified chronicity, unspecified site Take 1 tablet by mouth 2 (Two) Times a Day. 180 tablet 1 3 Active amitriptyline (ELAVIL) 50 MG tabletIndications: Pseudotumor cerebri Take 1 tablet by mouth Every Night. 90 tablet 3 Active amLODIPine (NORVASC) 5 MG tabletIndications: Essential hypertension Take 1 tablet by mouth Daily. 90 tablet 1 3 Active atorvastatin (LIPITOR) 20 MG tabletIndications: Type 2 diabetes mellitus with diabetic polyneuropathy, without long-term current use of insulin Take 1 tablet by mouth Every Night. 90 tablet 1 3 Active empagliflozin (Jardiance) 25 MG tablet tabletIndications: Type 2 diabetes mellitus with diabetic polyneuropathy, without long-term current use of insulin,Uncontroll ed type 2 diabetes mellitus with hyperglycemia Take 1 tablet by mouth Daily. 90 tablet 1 3 Active fenofibrate (TRICOR) 145 MG tabletIndications: Mixed hyperlipidemia Take 1 tablet by mouth Daily. 90 tablet 1 3 Active glipizide (Glucotrol) 5 MG tabletIndications: Type 2 diabetes mellitus with diabetic polyneuropathy, without long-term current use of insulin Take 1 tablet by mouth 2 (Two) Times a Day Before Meals. 180 tablet 3 Active metFORMIN (GLUCOPHAGE) 1000 MG tabletIndications: Obesity, unspecified obesity severity, unspecified obesity type Take 1 tablet by mouth 2 (Two) Times a Day With Meals. 180 tablet 3 3 Active metoprolol tartrate (LOPRESSOR) 50 MG tabletIndications: Essential hypertension Take 1 tablet by mouth Daily. 90 tablet 1 3 Active tamsulosin (FLOMAX) 0.4 MG capsule 24 hr capsuleIndications :Benign prostatic hyperplasia with lower urinary tract symptoms, symptom details unspecified Take 1 capsule by mouth Daily. 90 capsule 1 3 Active topiramate (TOPAMAX) 50 MG tabletIndications: Pseudotumor cerebri Take 1 tablet by mouth 2 (Two) Times a Day. 180 tablet 1 3 Active losartan (Cozaar) 50 MG tabletIndications: Essential hypertension,Type 2 diabetes mellitus with diabetic polyneuropathy, without long-term current use of insulin Take 1 tablet by mouth Daily. 90 tablet 3 Active docusate sodium (Colace) 100 MG capsuleIndications :Chronic idiopathic constipation Take 1 capsule by mouth 2 (Two) Times a Day. 180 capsule 3 Active Active Problems Problem Noted Date Diagnosed Date COVID-19 10/22/2021 Renal cyst 02/21/2020 Right flank pain, chronic 12/26/2019 Bilateral carpal tunnel syndrome 10/07/2018 Visit for wound check 09/20/2018 Basal cell carcinoma (BCC) of anterior chest Basal cell carcinoma of skin of neck 09/02/2018 Heartburn 03/12/2018 Diarrhea 03/12/2018 Nausea and vomiting 03/12/2018 Epigastric pain 03/12/2018 Family history of polyps in the colon 02/02/2018 Overview (02/02/2018): Added automatically from request for surgery [id number] Alcohol use 02/02/2018 Overview (02/02/2018): Added automatically from request for surgery [id number] History of diverticulitis 02/02/2018 Overview (02/02/2018): Added automatically from request for surgery [id number] Gastroesophageal reflux disease 02/02/2018 Overview (02/02/2018): Added automatically from request for surgery [id number] Dysphagia 02/02/2018 Overview (02/02/2018): Added automatically from request for surgery [id number] Family history of colon cancer in father 018 Overview (02/02/2018): Added automatically from request for surgery [id number] Pseudotumor cerebri Overview (04/24/2016): Drained x 2 Obesity Hypertension Gout GERD (gastroesophageal reflux disease) Dyslipidemia Diabetes mellitus Alcohol abuse Resolved Problems Problem Noted Date Diagnosed Date Resolved Date Marijuana use 06/24/2022 Immunizations Immunization Administration Dates Next Due COVID-19 (PFIZER) Purple Cap Monovalent 01/23/20 21,01/01/2021 Fluzone (or Fluarix & Flulaval for VFC) >6mos Family History Medical History Relation Name Comments Cancer Brother Diabetes Brother Hypertension Brother Cancer Father Colon cancer Father Aortic aneurysm Maternal Uncle Aneurysm Mother Arthritis Mother Osteoarthritis Mother Osteoporosis Mother Colon cancer Paternal Grandfather Relation Name Status Comments Brother Father Maternal Uncle Mother Alive Paternal Grandfather Social History Tobacco Use Types Packs/Day Years [...] Sign Reading Time Taken Comments Blood Pressure 148/84 12/12/2022 9:53 AM EST Pulse 82 12/12/2022 9:53 AM EST Temperature 36.4 C (97.5 F) 12/12/2022 9:53 AM EST Respiratory Rate 18 11/14/2022 10:45 AM EST Oxygen Saturation 97% 12/12/2022 9:53 AM EST Inhaled Oxygen Concentration - - Weight 111 kg (245 lb) 12/12/2022 9:53 AM EST Height 180.3 cm (5' 11 ) 12/12/2022 9:53 AM EST Body Mass Index 34.17 12/12/2022 9:53 AM EST Plan of Treatment Health Maintenance Due Date Last Done Comments URINE MICROALBUMIN-CREATININ E RATIO (uACR) 1971 Pneumococcal Vaccine 50+ (1 of 2 - PCV) 1980 TDAP/TD VACCINES (1 - Tdap) 1980 COLOGUARD 2006 COLON CANCER SCREENING [address] COLONOGRAPHY 2006 FECAL OCCULT BLOOD TEST 2006 FIT Testing (1 year) 2006 ZOSTER VACCINE (1 of 2) 2011 ANNUAL PHYSICAL 03/17/2019 03/17/2018 DIABETIC EYE EXAM 08/05/2019 08/05/2018 (Tone meng-Reported (Performed Externally)) HEMOGLOBIN A1C 05/14/2023 11/14/2022, 07/20, 12/17/2021, Additional history exists LIPID PANEL 08/15/2023 08/15/2022, 03/0 10/2021, 06/20/2021, Additional history exists DIABETIC FOOT EXAM 12/12/2023 12/12/2022, 0 11/14/2022, 01/21/2022, Additional history exists COVID-19 Vaccine (2023-2 5 season) 2024 01/22/2021, 01/01/2021 INFLUENZA VACCINE 07/19/2025 08/15/2022, (Declined), 10/20/2017 (Declined), Additional history exists COLONOSCOPY 04/18/2034 04/18/2024, 01/18, 02/05/2023, Additional history exists COLORECTAL CANCER SCREENING 04/18/2034 HEPATITIS C SCREENING Completed 01/17/2021 [facility] Discontinued Procedures Procedure Name Priority Date/Time Associated Diagnosis Comments SCANNED - COLONOSCOPY 04/18/2024 SCANNED - FOOT EXAM 12/12/2022 HEMOGLOBIN A1C Routine 11/14/2022 11:28 AM EST Type 2 diabetes mellitus with diabetic polyneuropathy, without long-term current use of insulin Uncontrolled type 2 diabetes mellitus with hyperglycemia Type 2 diabetes mellitus with diabetic neuropathy, without long-term current use of insulin LIPID PANEL Routine 08/15/2022 10:33 AM EDT Type 2 diabetes mellitus with diabetic polyneuropathy, without long-term current use of insulin Uncontrolled type 2 diabetes mellitus with hyperglycemia HEPATITIS PANEL, ACUTE Routine 01/17/2021 8:39 AM EDT Leukocytosis, unspecified type from Last 3 Months or Most Recently Relevant to Health Maintenance Results * Colonoscopy, Scan (04/18/2024) Jonn Lamar DO CHART REVIEW TABS Final Result * SCANNED - FOOT EXAM (12/12/2022) Jonn Lamar DO CHART REVIEW TABS Final Result * (ABNORMAL) Hemoglobin A1c (11/14/2022 11:28 AM EST) Hemoglobin A1C 7.20(H) 4.80 - 5.60 % 11/14/2022 8:25 PM EST [facility] Blood Venipuncture / Unknown 11/14/2022 11:28 AM EST 11/14/2022 11:28 AM EST Narrative [facility] - 11/14/2022 8:25 PM EST Hemoglobin A1C Ranges: Increased Risk for Diabetes 5.7% to 6.4% Diabetes >= 6.5% Diabetic Goal < 7.0% Jonn Lamar LAB BLOOD ORDERABLES Final Result [facility]
[address] [place] [address], [place] [phone] * (ABNORMAL) Lipid panel (08/15/2022 10:33 AM EDT) Total Cholesterol 163 0 - 200 mg/dL 08/15/2022 7:17 PM EDT [facility] Triglycerides 206(H) 0 - 150 mg/dL 08/15/2022 7:17 PM EDT [facility] HDL Cholesterol 36(L) 40 - 60 mg/dL 08/15/2022 7:17 PM EDT [facility] LDL Cholesterol 92 0 - 100 mg/dL 08/15/2022 7:17 PM EDT [facility] VLDL Cholesterol 35 5 - 40 mg/dL 08/15/2022 7:17 PM EDT [facility] LDL/HDL Ratio 2.38 08/15/2022 7:17 PM EDT [facility] Blood Venipuncture / Unknown 08/15/2022 10:33 AM EDT 08/15/2022 10:33 AM EDT Narrative [facility] - 08/15/2022 7:17 PM EDT Cholesterol Reference Ranges (U.S. Department of Health and Human Services ATP III Classifications) Desirable <200 mg/dL Borderline High 200-239 mg/dL High Risk >240 mg/dL Triglyceride Reference Ranges (U.S. Department of Health and Human Services ATP III Classifications) Normal <150 mg/dL Borderline High 150-199 mg/dL High 200-499 mg/dL Very High >500 mg/dL HDL Reference Ranges (U.S. Department of Health and Human Services ATP III Classifications) Low <40 mg/dl (major risk factor for CHD) High >60 mg/dl ('negative' risk factor for CHD) LDL Reference Ranges (U.S. Department of Health and Human Services ATP III Classifications) Optimal <100 mg/dL Near Optimal 100-129 mg/dL Borderline High 130-159 mg/dL High 160-189 mg/dL Very High >189 mg/dL Jonn Lamar DO LAB BLOOD ORDERABLES Final Result [facility]
[address] [place] [address], * Hepatitis Panel, Acute (01/17/2021 8:39 AM EDT) Hepatitis B Surface Ag Non-Reacti ve Non-Reacti ve 01/17/2021 9:23 AM EDT [facility] Hep A IgM Non-Reacti ve Non-Reacti ve 01/17/2021 9:23 AM EDT [facility] Hep B C IgM Non-Reacti ve Non-Reacti ve 01/17/2021 9:23 AM EDT [facility] Hepatitis C Ab Non-Reacti ve Non-Reacti ve 01/17/2021 9:23 AM EDT [facility] Blood Right upper arm structure / Unknown Venipuncture / Unknown 01/17/2021 8:39 AM EDT 01/17/2021 8:43 AM EDT Narrative [facility] - 01/17/2021 9:23 AM EDT Results may be falsely decreased if patient taking Biotin. Janet Hunt MACHINE APPLICATOR CEMENTER LAB BLOOD ORDERABLES Fi nal Result [facility]
[address] [facility] [place] [address], [phone] from Last 3 Months or Most Recently Relevant to Health Maintenance Insurance MEDICAID Care Teams Produce Shipper Relationship Specialty Start Date End Date Jonn Lamar DO [address] [place] [id number] PCP - General Family Medicine 06/19/21
--- NOTE | 2025-05-12 18:01 | CT_ITS ---
PROCEDURE INFORMATION: Exam: CTA Abdomen and Pelvis With Contrast Exam date and time: 05/12/2025 7:52 PM Age: 65 years old Clinical indication: Injury or trauma; Fall; Additional info: Fell off of a chair while standing on it TECHNIQUE: Imaging protocol: Computed tomographic angiography of the abdomen and pelvis with contrast. Exam focused on the arteries. 3D rendering (Not supervised by radiologist): MIP and/or 3D reconstructed images were created by the technologist. Radiation optimization: All CT scans at this facility use at least one of these dose optimization techniques: automated exposure control; mA and/or kV adjustment per patient size (includes targeted exams where dose is matched to clinical indication); or iterative reconstruction. Contrast material: ISOUVE 370; Contrast volume: 80 ml; Contrast route: INTRAVENOUS (IV); COMPARISON: CT BONY PELVIS 05/12/2025 7:46 PM FINDINGS: Aorta: Aortic calcification with multifocal atheromatous plaquing/irregularity. No aortic aneurysm or dissection. Celiac trunk and mesenteric arteries: Calcification at the proximal SMA without definite significant stenosis. Renal arteries: Mild left renal artery calcification without significant stenosis. Right iliac arteries: No occlusion or significant stenosis. Left iliac arteries: No occlusion or significant stenosis. Veins: Retroaortic left renal vein. Liver: Hepatic steatosis. Hepatomegaly measures 20 cm. Small hepatic hypodensity is too small to characterize. Gallbladder and biliary ducts: Unremarkable. No calcified stones. No ductal dilation. Pancreas: Unremarkable. No mass. No ductal dilation. Spleen: Unremarkable. No splenomegaly. Adrenal glands: Mild nonspecific thickening of the adrenal glands. Kidneys and ureters: There are renal cysts measuring up to 5 cm. There are additional small bilateral renal hypodensities are too small to characterize. Bilateral renal excretion of contrast. Mild prominence of both ureters likely secondary to distended urinary bladder. No ureteral calculus. Stomach and bowel: Diverticulosis without diverticulitis. Appendix: Normal appendix. Intraperitoneal space: Unremarkable. No free air. No significant fluid collection. Lymph nodes: Unremarkable. No enlarged lymph nodes. Urinary bladder: Distended urinary bladder. Reproductive: Unremarkable as visualized. Bones/joints: Lumbar spine is better evaluated on dedicated exam. Mild degenerative change involving the hips. Soft tissues: Unremarkable. IMPRESSION: 1. No acute abnormality involving the abdomen or pelvis. 2. Nonemergent findings as above.
--- NOTE | 2025-05-12 18:01 | CT_ITS ---
PROCEDURE INFORMATION: Exam: CT Cervical Spine Without Contrast Exam date and time: 05/12/2025 7:37 PM Age: 65 years old Clinical indication: Injury or trauma; Additional info: Fell off of a chair while standing on it TECHNIQUE: Imaging protocol: Computed tomography of the cervical spine without contrast. Radiation optimization: All CT scans at this facility use at least one of these dose optimization techniques: automated exposure control; mA and/or kV adjustment per patient size (includes targeted exams where dose is matched to clinical indication); or iterative reconstruction. COMPARISON: CR XR MULTIPLE SPINE 6+V 08/06/2023 9:13 AM FINDINGS: Bones: Nonspecific straightening. Vertebral body height and AP alignment is preserved. Moderate degenerative change about the dens. Moderate to severe prevertebral osteophytosis. Bilateral facet joint degenerative change. No acute cervical spine fracture. Multilevel cervical central and foraminal stenoses. Lungs: Lung apices are normal. Pleural spaces: No visible pneumothorax. Vasculature: Vascular calcification. Soft tissues: Unremarkable. IMPRESSION: No acute cervical spine fracture.
--- NOTE | 2025-05-12 18:01 | CT_ITS ---
PROCEDURE INFORMATION: Exam: CT Head Without Contrast Exam date and time: 05/12/2025 7:35 PM Age: 65 years old Clinical indication: Injury or trauma; Additional info: Fell off of a chair while standing on it TECHNIQUE: Imaging protocol: Computed tomography of the head without contrast. Radiation optimization: All CT scans at this facility use at least one of these dose optimization techniques: automated exposure control; mA and/or kV adjustment per patient size (includes targeted exams where dose is matched to clinical indication); or iterative reconstruction. COMPARISON: MR HEAD/BRAIN WO CON 04/24/2025 4:00 PM FINDINGS: Brain: No acute intracranial hemorrhage. No midline shift or significant intracranial mass effect. No cerebral edema. Cerebral ventricles: No hydrocephalus. Paranasal sinuses: Minor paranasal sinus disease. Mastoid air cells: Visualized mastoid air cells are well aerated. Bones: Unremarkable. No acute fracture. Soft tissues: Unremarkable. IMPRESSION: No acute intracranial abnormality.
--- NOTE | 2025-05-12 18:01 | CT_ITS ---
PROCEDURE INFORMATION: Exam: CT Lumbar Spine Without Contrast Exam date and time: 05/12/2025 7:43 PM Age: 65 years old Clinical indication: Injury or trauma; Fall; Additional info: Fell off of a chair while standing on it TECHNIQUE: Imaging protocol: Computed tomography of the lumbar spine without contrast. Radiation optimization: All CT scans at this facility use at least one of these dose optimization techniques: automated exposure control; mA and/or kV adjustment per patient size (includes targeted exams where dose is matched to clinical indication); or iterative reconstruction. COMPARISON: CT LUMBAR SPINE WO CON 05/12/2025 7:43 PM FINDINGS: Bones/joints: Chronic superior endplate compression fracture at L1. Remainder demonstrates preserved height and AP alignment. Mild to moderate prevertebral osteophytosis. Bilateral facet joint degenerative change. Disc space narrowing greatest at L5-S1 with associated vacuum disc phenomena and degenerative endplate change. No acute lumbar spine fracture. Soft tissues: Unremarkable. IMPRESSION: No acute lumbar spine fracture.
--- NOTE | 2025-05-12 18:01 | CT_ITS ---
PROCEDURE INFORMATION: Exam: CTA Chest With Contrast Exam date and time: 05/12/2025 7:52 PM Age: 65 years old Clinical indication: Injury or trauma; Fall; Additional info: Fell off of a chair while standing on it TECHNIQUE: Imaging protocol: Computed tomographic angiography of the chest with contrast. Exam focused on the arteries. 3D rendering (Not supervised by radiologist): MIP and/or 3D reconstructed images were created by the technologist. Radiation optimization: All CT scans at this facility use at least one of these dose optimization techniques: automated exposure control; mA and/or kV adjustment per patient size (includes targeted exams where dose is matched to clinical indication); or iterative reconstruction. Contrast material: ISOUVE 370; Contrast volume: 80 ml; Contrast route: INTRAVENOUS (IV); COMPARISON: CT ANGIO CHEST 05/12/2025 7:52 PM FINDINGS: Pulmonary arteries: No evidence of pulmonary embolus. Aorta: Unremarkable. No aortic aneurysm. No aortic dissection. Other arteries: Near the calcification with multifocal atheromatous irregularity. No aneurysm or dissection. Lungs: There are bilateral posterior dependent hypoventilatory changes. No consolidation. No pulmonary contusion or laceration. Pleural spaces: Unremarkable. No pneumothorax. No pleural effusion. Heart: Unremarkable. No cardiomegaly. No pericardial effusion. Coronary arteries: Coronary artery calcification. Lymph nodes: Calcified left hilar lymph nodes. Bones/joints: Thoracic spine is better evaluated on dedicated exam. Soft tissues: Unremarkable. IMPRESSION: No acute abnormality involving the chest.
--- NOTE | 2025-05-12 18:01 | CT_ITS ---
PROCEDURE INFORMATION: Exam: CTA Head With Contrast, Arteriography Exam date and time: 05/12/2025 7:48 PM Age: 65 years old Clinical indication: Injury or trauma; Fall; Additional info: Fell off of a chair while standing on it TECHNIQUE: Imaging protocol: Computed tomographic angiography of the head with contrast. Exam focused on the arteries. 3D rendering (Not supervised by radiologist): MIP and/or 3D reconstructed images were created by the technologist. Radiation optimization: All CT scans at this facility use at least one of these dose optimization techniques: automated exposure control; mA and/or kV adjustment per patient size (includes targeted exams where dose is matched to clinical indication); or iterative reconstruction. Contrast material: ISOUVE 370; Contrast volume: 80 ml; Contrast route: INTRAVENOUS (IV); COMPARISON: CT HEAD/BRAIN WO CON 05/12/2025 7:35 PM FINDINGS: ANTERIOR CIRCULATION: Right internal carotid artery: Intracranial segment is patent with no significant stenosis. No aneurysm. Right middle cerebral artery: No occlusion or significant stenosis. No aneurysm. Right anterior cerebral artery: No occlusion or significant stenosis. No aneurysm. Left internal carotid artery: Intracranial segment is patent with no significant stenosis. No aneurysm. Left middle cerebral artery: No occlusion or significant stenosis. No aneurysm. Left anterior cerebral artery: No occlusion or significant stenosis. No aneurysm. POSTERIOR CIRCULATION: Right vertebral artery: No occlusion or significant stenosis. No aneurysm. Left vertebral artery: No occlusion or significant stenosis. No aneurysm. Basilar artery: No occlusion or significant stenosis. No aneurysm. Right posterior cerebral artery: No occlusion or significant stenosis. No aneurysm. Left posterior cerebral artery: No occlusion or significant stenosis. No aneurysm. Veins: Venous sinuses and cerebral veins are patent. No intraluminal thrombus. Brain: No hemorrhage, mass effect, or midline shift. Cerebral ventricles: No ventriculomegaly. Bones/joints: Unremarkable. No acute fracture. Soft tissues: Unremarkable. IMPRESSION: No large vessel stenosis or occlusion.
--- NOTE | 2025-05-12 18:01 | CT_ITS ---
PROCEDURE INFORMATION: Exam: CT Thoracic Spine Without Contrast Exam date and time: 05/12/2025 7:39 PM Age: 65 years old Clinical indication: Injury or trauma; Additional info: Fell off of a chair while standing on it TECHNIQUE: Imaging protocol: Computed tomography of the thoracic spine without contrast. Radiation optimization: All CT scans at this facility use at least one of these dose optimization techniques: automated exposure control; mA and/or kV adjustment per patient size (includes targeted exams where dose is matched to clinical indication); or iterative reconstruction. COMPARISON: CR XR MULTIPLE SPINE 6+V 08/06/2023 9:13 AM FINDINGS: Bones/joints: Vertebral body height and AP alignment is preserved. Moderate to severe prevertebral osteophytosis. There are facet joint degenerative changes. No acute thoracic spine fracture. No definite significant central canal stenosis within limitations of technique Soft tissues: Unremarkable. Pleural spaces: No visible pneumothorax. IMPRESSION: No acute thoracic spine fracture.
--- NOTE | 2025-05-12 18:01 | CT_ITS ---
PROCEDURE INFORMATION: Exam: CTA Neck With Contrast Exam date and time: 05/12/2025 7:48 PM Age: 65 years old Clinical indication: Injury or trauma; Fall; Additional info: Fell off of a chair while standing on it TECHNIQUE: Imaging protocol: Computed tomographic angiography of the neck with contrast. Exam focused on the cervical segments of the vasculature. 3D rendering (Not supervised by radiologist): MIP and/or 3D reconstructed images were created by the technologist. Radiation optimization: All CT scans at this facility use at least one of these dose optimization techniques: automated exposure control; mA and/or kV adjustment per patient size (includes targeted exams where dose is matched to clinical indication); or iterative reconstruction. Contrast material: ISOUVE 370; Contrast volume: 80 ml; Contrast route: INTRAVENOUS (IV); COMPARISON: CT CERVICAL SPINE WO CON 05/12/2025 7:37 PM FINDINGS: Right common carotid artery: No stenosis. No dissection or occlusion. Right internal carotid artery: Atherosclerotic plaque causes less than 50% proximal right ICA stenosis. The distal right ICA is patent without significant stenosis. Right external carotid artery: No occlusion or stenosis of the origin. Left common carotid artery: Mild plaque in the left common carotid artery without significant stenosis. Left internal carotid artery: No stenosis of the extracranial segment. No dissection or occlusion. Left external carotid artery: No occlusion or stenosis of the origin. Right vertebral artery: No stenosis. No dissection or occlusion. Left vertebral artery: No stenosis. No dissection or occlusion. Soft tissues: Unremarkable. Bones/joints: Advanced degenerative spondylosis in the cervical spine. IMPRESSION: 1. Mild proximal right ICA stenosis. 2. No evidence of vascular injury. No dissection or large vessel occlusion. 3. Advanced degenerative spondylosis in the cervical spine. REFERENCES: NASCET CRITERIA. The degree of stenosis in the cervical segment of the internal carotid artery is based on NASCET criteria. Normal is no stenosis. Mild is less than 50% stenosis. Moderate is 50-69% stenosis. Severe is 70% to 99% stenosis. Total occlusion is no detectable patent lumen.
--- NOTE | 2025-05-12 18:02 | CT_ITS ---
PROCEDURE INFORMATION: Exam: CT Pelvis Without Contrast, Skeleton Exam date and time: 05/12/2025 7:46 PM Age: 65 years old Clinical indication: Injury or trauma; Fall; Additional info: Trauma, critical injury suspected TECHNIQUE: Imaging protocol: Computed tomography of the pelvis without contrast. Exam focused on the skeleton. Radiation optimization: All CT scans at this facility use at least one of these dose optimization techniques: automated exposure control; mA and/or kV adjustment per patient size (includes targeted exams where dose is matched to clinical indication); or iterative reconstruction. COMPARISON: CT LUMBAR SPINE WO CON 05/12/2025 7:43 PM FINDINGS: Vasculature: Vascular calcification. Urinary bladder: Distended urinary bladder. Bones/joints: Degenerative change involving the lumbar spine, sacroiliac joints and hip joints. No acute fracture. No dislocation. Soft tissues: Unremarkable. IMPRESSION: No acute osseous abnormality.
[2025-05-12] MEDS: 0.9 % SODIUM CHLORIDE 1000ML 1,000 ML 999 ML IV (18:39)
[2025-05-12] MEDS: ONDANSETRON 4MG/2ML VIAL 4 MG IV (18:39)
[2025-05-12] MEDS: DEXAMETHASONE 4MG/ML 5ML MDV 10 MG IV (18:39)
[2025-05-12 18:40] LABS: Hematocrit 46.6 % (42.0-52.0); Hemoglobin 16.3 g/dL (14.1-18.0); Immature Granulocytes % 0.4 %; Mean Corpuscular HGB Conc 35.0 g/dL (31.8-35.4); Mean Corpuscular Hemoglobin 32.0 pg (27.0-31.2); Mean Corpuscular Volume 91.6 fl (80-94); Nucleated Red Blood Cells % 0 %; Platelet Count 296 K/mm3 (142-424); Red Blood Count 5.09 M/mm3 (4.60-6.20); Red Cell Distribution Width-SD 43.0 fL; White Blood Count 10.6 K/mm3 (4.8-10.8)
[2025-05-12] MEDS: METHOCARBAMOL 500MG TABLET 500 MG PO (18:40)
[2025-05-12] MEDS: ACETAMINOPHEN 500MG TAB 1000 MG PO (18:40)
[2025-05-12] MEDS: OXYCODONE 5MG IMMEDIATE RELEASE TABLET 5 MG PO (18:40)
[2025-05-12 18:51] LABS: INR 0.92 (0.9-1.1); Prothrombin Time 10.3 seconds (10.1-12.5)
[2025-05-12 19:07] LABS: Chloride 92 mmol/L (98-107)
[2025-05-12 19:08] LABS: Albumin Level 4.1 g/dl (3.5-5.0); Sodium 129 mmol/L (136-145)
[2025-05-12 19:10] LABS: Blood Urea Nitrogen 13 mg/dl (9-20); Creatinine Clearance Estimated 115 mL/min (50-200); Creatinine,Serum 0.70 mg/dl (0.66-1.25); Estimated Glomerular Filt Rate 114 ml/min (>60); GFR (African American) 137 ML/MIN (>60)
[2025-05-12 19:11] LABS: Alanine Aminotransferase 25 U/L (12-78); Albumin/Globulin Ratio 1.0 (1.1-1.8); Alkaline Phosphatase 97 U/L (38-126); Anion Gap 14.9 mEq/L (5-15); Aspartate Amino Transferase 37 U/L (17-59); Bilirubin,Total 0.4 mg/dl (0.2-1.3); Calcium 9.1 mg/dl (8.4-10.2); Carbon Dioxide 25 mmol/L (22.0-30.0); Globulin 4.2 g/dL (1.3-3.2); Glucose 183 mg/dl (74-100); Total Protein,Serum 8.3 g/dl (6.3-8.2)
[2025-05-12 19:14] LABS: Potassium 2.9 mmoL/L (3.5-5.1)
[2025-05-12] MEDS: IOPAMIDOL-370 (76%);100ML BOTTLE 160 ML IV (19:47)
[2025-05-12] MEDS: SODIUM CHLORIDE 0.9% 10ML SYR (RAD ONLY) 10 ML IV (19:47)
[2025-05-12] MEDS: 0.9 % SODIUM CHLORIDE 50 ML VIAL IV (19:48)
[2025-05-12] MEDS: POTASSIUM CHLORIDE 20MEQ TAB 60 MEQ PO (20:07)
[2025-05-12 20:09] LABS: Microscopic, Urine URINE MICROSCOPIC (MICROSCOPIC)
[2025-05-12 20:18] LABS: Bilirubin,Urine Negative (Negative); Color,Urine YELLOW (Yellow); Glucose,Urine (UA) 3+ (Negative); Ketones,Urine Negative (Negative); Leukocyte Esterase,Urine Negative (Negative); PH,Urine 6.0 (5.0-8.5); Protein,Urine Negative (Negative); Specific Gravity, Urine <= 1.005 (1.005-1.030); Urobilinogen,Urine 0.2 EU/dl (0.2)
[2025-05-12 20:29] LABS: Squamous Epithelial Cell,Urine Occasional #/hpf (0-5); WBC,Urine Occasional #/hpf (0-3)
--- NOTE | 2025-05-12 20:40 | ECG_ITS ---
APPROVED REPORT Exam: Resting ECG HR:64 bpm ECG Measurements Heart Rate 64 AXES SD 227 P 92 QRSd 99 QRS -33 QT 430 T 5 QTc 439 Conclusion SINUS RHYTHM WITH FIRST DEGREE AV BLOCK LEFT AXIS DEVIATION [QRS AXIS < -30] ABNORMAL ECG Electronically signed by : SHERLY AGUSTIN, 05/14/2025 07:28:00
[2025-05-12] MEDS: HYDROMORPHONE 2MG/ML SYRINGE 1 MG IV (20:42)
--- NOTE | 2025-05-12 21:01 | P.HP_ITS ---
History of Present Illness *Admission Date: 05/12/25 *Reason for visit:: Fall, back pain *History of present illness: Mr. Sanchez is a 65-year-old male who has a history of CAD, hypertension, neuropathy, diabetes, daily alcohol consumption, has obesity and gout. He presented to the ER after falling while standing on a chair. Was attempting to hang by paper at home and states he fell out of the chair. Occasionally has episodes of blacking out. Denies hitting his head. He landed on his back when he fell. Initially was unable to get up due to pain. Ultimately able to ambulate and get to the ER in a private vehicle. Denies any worsening numbness or tingling or weakness in his legs or arms. Does have neuropathy and has chronic tingling sensation in his feet and lower legs. Denies any chest pain or shortness of breath. No abdominal pain. Workup in the ER with extensive im aging showing no fracture. Multiple attempts to address pain however were limited in their effectiveness. Labs also showed low sodium of 129 and potassium of 2.9. Given his intractable back pain and electrolyte disturbances, medicine was consulted for admission and further management After arriving to the floor, he states that after receiving IV opiates his pain is doing somewhat better. It is tolerable at this time as long as he does not move. Alert and oriented x 4. Stable on room air. States he drinks 8-12 beers a day. Currently receiving potassium replacement. [facility] Disclaimer: The information contained in this section may have been updated after the patient was seen, as this information can be updated by other users. Medical History CAD (coronary artery disease) Hyperlipidemia Angina pectoris Hx of deep venous thrombosis Abnormal electrocardiogram [ECG] [EKG] Polycythemia BPH (benign prostatic hyperplasia) Gout GERD (gastroesophageal reflux disease) Diabetes mellitus Hypertension Surgical History History of heart artery stent History of colonoscopy History of tonsillectomy Family History Father Cancer Brother Diabetes Lymphoma Factor V Leiden Thoracic aneurysm, ruptured Grandmother Stroke Grandfather Stroke Mother FH: brain aneurysm Social History Smoking Status: Current every day smoker alcohol intake: current alcohol intake frequency: 3 or more drinks per day substance use type: marijuana current occupational status: retired Travel in the last 8 weeks?: None household members: spouse housing: house marital status: Have you lived/traveled outside [place] in past 30 days?: No Contact w/someone who lives/traveled outside US past 30 days?: No Exposure to someone with infectious disease in past 14 days?: No Do you have a fever (greater than 100.4 F or 38 C)?: No Have you tested positive for COVID-19?: No Exposed to someone with COVID-19 in past 14 days?: No Do you have a sore throat?: No Do you have a cough?: No Do you have any weakness?: No Do you have any diarrhea?: No Are you experiencing any unusual bleeding?: No Do you have any muscle aches/pain?: No Do you have any abdominal pain?: No Are you experiencing loss of taste or smell?: No Other Medical History Have you received the Flu Vaccine for this season: No Have you received the Pneumonia Vaccine: Yes Review of Systems Review of Systems Review of systems (narrative): 14 point review of systems performed, pertinent positives and negatives as per H PI Meds Home Medications and Allergies Home Medications ?Medication ?Instructions ?Recorded ?Confirmed ?Type blood sugar diagnostic (OneTouch #100 ea 09/13/2403/19 Rx Ultra Test strips) lancets 33 gauge #100 ea 09/13/24 03/29/25 Rx aspirin 81 mg chewable tablet 81 mg PO DAILY 90 days # 90 tabs 11/02/24 03/29/25 Rx prasugrel HCl 10 mg tablet 10 mg PO DAILY 90 days #90 tabs 11/02/24 03/29/25 Rx (Effient) pravastatin 40 mg tablet 40 mg PO DAILY #90 tabs 10/2003/29/25 Rx amlodipine 10 mg tablet 10 mg PO BID HTN 90 days #18 0 tabs 12/05/24 03/29/25 Rx allopurinol 100 mg tablet See Rx Instructions .Route 0 02/14/25 03/29/25 Rx .COMPLEX #60 tabs amitriptyline 50 mg tablet See Rx Instructions .Route 02/14/25 03/29/25 Rx .COMPLEX #30 tabs bisoprolol fumarate 10 mg tablet 10 mg PO DAILY 90 day s #90 tabs 02/14/25 03/29/25 Rx docusate sodium 100 mg capsule See Rx Instructions .Ro [place] 02/14/25 03/29/25 Rx .COMPLEX #60 caps empagliflozin 25 mg tablet See Rx Instructions .Route 02/14/25 03/29/25 Rx (Jardiance) .COMPLEX #30 tabs pantoprazole 40 mg tablet,delayed See Rx Instructions .Route 02/14/25 03/29/25 Rx release .COMPLEX #30 tabs tamsulosin 0.4 mg capsule See Rx Instructions .Route 0 02/14/25 03/29/25 Rx .COMPLEX #30 caps topiramate 50 mg tablet See Rx Instructions .Route 0 02/14/25 03/29/25 Rx .COMPLEX #60 tabs valsartan 320 1 tab PO DAILY 90 days #90 t abs 02/14/25 03/29/25 Rx mg-hydrochlorothiazide 25 mg tablet (Diovan HCT) albuterol sulfate 90 mcg/actuation See Rx Instructions .Route 04/04/25 Rx aerosol inhaler (Ventolin HFA) .COMPLEX #18 grams semaglutide 0.25 mg or 0.5 mg (2 0.25 mg (0.368 mL) SQ WEEKLY #3 mL 04/04/25 Rx mg/3 mL) subcutaneous pen injector (OzFeidee) blood sugar diagnostic (Blood #50 ea 04/26/25 Rx Glucose Test strips) blood-glucose meter (Blood Glucose #1 ea 04/26/25 Rx Monitoring kit) lancets (Fingerstix Lancets) #100 ea 04/26/25 Rx thiamine HCl (vitamin B1) 100 mg See Rx Instructions . Route 04/26/25 Rx tablet (Vitamin B-1) .COMPLEX #75 tabs New Prescriptions to Start Prescriptions: Allergies Allergy/AdvReac Type Severity Reaction Status Date / Time bee venom protein (honey bee) Allergy Swelling Verified 05/12/25 22:08 of Lip/Tongue/Throat gabapentin AdvReac Severe sucidal Verified 03/29/25 09:54 thoughts Exam Data for Last 24 hours Vital signs and Labs for Last 24 Hours: Temp Pulse Resp BP Pulse Ox O2 Del Method 98.5 F 60 17 152/92 H 96 Room Air 05/12/25 18:08 05/12/25 19:16 05/12/25 18:08 05/12/25 19:16 05/12/25 19:16 05/12/25 19:01 Laboratory Results - last 24 hr 05/12/25 18:33: WBC 10.6, RBC 5.09, Hgb 16.3, Hct 46.6, MCV 91.6, MCH 32.0 H, MCHC 35.0, RDW 12.8, Plt Count 296, MPV 9.9, Neut % (Auto) 57.5, Lymph % (Auto) 29.2, [place] % (Auto) 7.3, Eos % (Auto) 4.3, Baso % (Auto) 1.3, Neut # (Auto) 6.1, Lymph # (Auto) 3.1, [place] # (Auto) 0.8, Eos # (Auto) 0.5 H, Baso # (Auto) 0.1, PT 10.3, INR 0.92, Sodium 129 L, Potassium 2.9 L*, Chloride 92 L, Carbon Dioxide 25, Anion Gap 14.9, BUN 13, Creatinine 0.70, Estimated Creat Clear 115, Estimated GFR 114, Est GFR ( Amer) 137, Glucose 183 H, Calcium 9.1, Total Bilirubin 0.4, AST 37, ALT 25, Alkaline Phosphatase 97, Total Protein 8.3 H, Albumin 4.1, Globulin 4.2 H, Albumin/Globulin Ratio 1.0 L 05/12/25 20:05: Urine Color Yellow, Urine Appearance Clear, Urine pH 6.0, Ur Specific [place] <= 1.005, Urine Protein Negative, Urine Glucose (UA) 3+, Urine Ketones Negative, Urine Blood Negative, Urine Nitrate Negative, Urine Bilirubin Negative, Urine Urobilinogen 0.2, Ur Leukocyte Esterase Negative, Urine WBC Occasional, Ur Squamous Epith Cells Occasional I & O for Last 24 hours: Intake & Output 05/09/25 05/10/25 05/11/25 05/12/25 23:59 23:59 23:59 23:59 Weight 108.862 kg Constitutional Constitutional: mild distress, obese, chronically ill appearing and cooperative *Routine HEENT Exam Head: Present normocephalic and atraumatic Eye: Present EOMI and PERRL ENT: Present mucous membranes moist *Routine Neck Exam Neck: Present supple; Absent lymphadenopathy *Routine Respiratory Exam Respiratory: Present prolonged expiratory phase; Absent rhonchi, wheezes or crackles *Routine Cardiovascular Exam Cardiovascular: Present RRR *Routine Abdominal Exam Abdominal: Present soft and normoactive bowel sounds; Absent tenderness *Routine Rectal Exam Rectal:: deferred *Routine Genitalia Exam Genitalia:: deferred *Routine Extremities Exam Extremities: Absent cyanosis, clubbing or edema Routine Back/Spine/Pelvis Exam Comments: Tender lower thoracic upper lumbar region lateral to the spine on the right side *Routine Skin Exam Skin: Present intact and warm; Absent rash *Routine Neurological Exam Neurological: Present alert, oriented X3, CN II-XII intact and moving all extremities; Absent altered mental status Assessment and Plan *Assessment and plan (1) Intractable back pain: Status: Acute Category: Medical Code(s): M54.9 - Dorsalgia, unspecified (2) Hypokalemia: Status: Acute Category: Medical Code(s): E87.6 - Hypokalemia (3) Hyponatremia: Status: Acute Category: Medical Code(s): E87.1 - Hypo-osmolality and hyponatremia (4) Chronic alcohol abuse: Status: Chronic Category: Medical Code(s): F10.10 - Alcohol abuse, uncomplicated (5) BMI 35.0-35.9,adult: Status: Chronic Category: Medical Code(s): Z68.35 - Body mass index [BMI] 35.0-35.9, adult (6) Diabetic neuropathy: Status: Chronic Qualifiers: Diabetes mellitus complication detail: diabetic polyneuropathy Diabetes mellitus type: type 2 Qualified Code(s): E11.42 - Type 2 diabetes mellitus with diabetic polyneuropathy Category: Medical Code(s): E11.40 - Type 2 diabetes mellitus with diabetic neuropathy, unspecified (7) Hyperlipidemia: Status: Acute Qualifiers: Hyperlipidemia type: mixed hyperlipidemia Qualified Code(s): E78.2 - Mixed hyperlipidemia Category: Medical Code(s): E78.5 - Hyperlipidemia, unspecified (8) CAD (coronary artery disease): Status: Chronic Qualifiers: Associated angina: without angina Coronary Disease-Associated Artery/Lesion type: [place] artery [place] vs. transplanted heart: [place] heart Qualified Code(s): I25.10 - Atherosclerotic heart disease of [place] coronary artery without angina pectoris Category: Medical Code(s): I25.10 - Atherosclerotic heart disease of [place] coronary artery without angina pectoris (9) Hypertension: Status: Chronic Qualifiers: Hypertension type: primary hypertension Qualified Code(s): I10 - Essential (primary) hypertension Category: Medical Code(s): I10 - Essential (primary) hypertension (10) Diabetes mellitus: Status: Chronic Qualifiers: Diabetes mellitus complication detail: with polyneuropathy Diabetes mellitus complication status: with neurologic complications Diabetes mellitus terminal clerk insulin use: without terminal clerk use Diabetes mellitus type: type 2 Qualified Code(s): E11.42 - Type 2 diabetes mellitus with diabetic polyneuropathy Category: Medical Code(s): E11.9 - Type 2 diabetes mellitus without complications (11) Gout: Status: Acute Category: Medical Code(s): M10.9 - Gout, unspecified Plan Mr. Sanchez is a 65-year-old male that was hanging fly paper this evening at home and fell off the chair he was standing on. Reports having episodes of blacking out at home and has had them for some time. Upon regaining consciousness on the floor he had significant back pain. Thought he had broken something. Came to the ER for further evaluation. Images negative for any fracture. Pain uncontrolled in the ED. Also found to have hyponatremia with sodium of 129 and potassium of 2.9. Discussed case with ER physician, request admission for electrolyte replacement and further management of intractable back pain. I agreed to admit for further care. Necessitating inpatient management due to needing IV opiates for severity of pain. Will have therapy evaluate in the morning. Problems addressed as follows: Intractable back pain Fall Neuropathy - Per my review of CT chest abdomen pelvis and C/T/L-spine, no acute fractures. Pain lateral to spine, likely musculoskeletal. - Continue Toradol 30 mg IV every 6 hours as needed for moderate pain. Initiated on Dilaudid 1 mg IV every 4 hours as needed for severe pain. Monitor for toxicity. - PT and OT consulted to evaluate in the morning. - Transition to oral opiate regimen in the morning - Has chronic neuropathy from his diabetes. Declined GABAergic medication at this time however given history of SI while taking gabapentin Hyponatremia Hypokalemia - Suspect secondary to his daily beer consumption. Will replace potassium per electrolyte protocol. 2.9 on presentation, repeat CBC, CMP, magnesium ordered for the morning - Sodium 129, suspect beer Potomania. Urine sodium pending. Monitor for improvement with fluid resuscitation - Holding HCTZ COPD: Albuterol inhaler as needed every 6 hours. Not in acute exacerbation. Diabetes: A1c obtained, 7.9 on presentation. Initiate fingerstick monitoring ACHS and sliding scale insulin ACHS. Resume empagliflozin 25 mg daily per home regimen Hypertension: CAD: - Resume prasugrel 10 mg and aspirin 81mg daily. Denies any chest pain at this time. Blood pressure within normal range at 128/70. - Resume amlodipine 10 mg twice daily, bisoprolol 10 mg daily - Will confirm valsartan dosage prior to resuming BPH: Continue tamsulosin 0.4 mg night he Gout: Continue allopurinol 100 mg twice daily. Does not appear to have a flare at this time Obesity, complicates all aspects of his care Full code Lovenox 40 subcu daily Diabetic diet
[2025-05-12] MEDS: KETOROLAC 30MG/ML VIAL 30 MG IV (22:00)
[2025-05-12] MEDS: PANTOPRAZOLE 40MG TABLET 40 MG PO (22:03)
[2025-05-12 22:36] LABS: POC Glucose,Bedside 233 (70-110)
[2025-05-12] MEDS: humaLOG 100 UNITS/ML 10ML VIAL (SSI) SUBCUT (22:44)
[2025-05-12] MEDS: TAMSULOSIN 0.4MG CAPSULE 0.4 MG PO (23:05)
--- NOTE | 2025-05-12 23:16 | PC.NURSE ---
This nurse is unable to complete med rec at this time, Pt is not sure on what medications he takes and states that his will have to bring a list in tomorrow (05/13)
[2025-05-12 23:51] LABS: Hemoglobin A1C 7.9 % (4.0-6.0)
[2025-05-13] VITALS: BP 147/74; PULSE 60; PULSE 68; RESP 16; TEMP 36.6; O2SAT 92
[2025-05-13 04:00] VITALS: BP 145/82; PULSE 69; PULSE 70; RESP 16; TEMP 36.6; O2SAT 95; BMI 33.9
[2025-05-13] MEDS: humaLOG 100 UNITS/ML 10ML VIAL (SSI) SUBCUT ×3 (05:24→16:45)
[2025-05-13 05:25] LABS: POC Glucose,Bedside 201 (70-110)
[2025-05-13] MEDS: KETOROLAC 30MG/ML VIAL 30 MG IV ×2 (05:25→10:44)
--- NOTE | 2025-05-13 05:38 | PC.NURSE ---
Pt is alert and oriented x4. Pt has c/o generalized pain from fall at home, and has been treated per MAR. Pt potassium was replaced, Pt is NSR on telemetry. Pt has had no other acute changes to note this shift.
[2025-05-13 06:51] LABS: Hematocrit 44.9 % (42.0-52.0); Hemoglobin 15.8 g/dL (14.1-18.0); Immature Granulocytes % 0.6 %; Mean Corpuscular HGB Conc 35.2 g/dL (31.8-35.4); Mean Corpuscular Hemoglobin 32.2 pg (27.0-31.2); Mean Corpuscular Volume 91.4 fl (80-94); Nucleated Red Blood Cells % 0 %; Platelet Count 270 K/mm3 (142-424); Red Blood Count 4.91 M/mm3 (4.60-6.20); Red Cell Distribution Width-SD 42.8 fL; White Blood Count 10.0 K/mm3 (4.8-10.8)
[2025-05-13 07:04] LABS: Alanine Aminotransferase 23 U/L (12-78); Albumin Level 3.5 g/dl (3.5-5.0); Albumin/Globulin Ratio 1.1 (1.1-1.8); Alkaline Phosphatase 85 U/L (38-126); Anion Gap 9.8 mEq/L (5-15); Aspartate Amino Transferase 34 U/L (17-59); Bilirubin,Total 0.4 mg/dl (0.2-1.3); Blood Urea Nitrogen 14 mg/dl (9-20); Calcium 8.8 mg/dl (8.4-10.2); Carbon Dioxide 26 mmol/L (22.0-30.0); Chloride 103 mmol/L (98-107); Creatinine Clearance Estimated 116 mL/min (50-200); Creatinine,Serum 0.70 mg/dl (0.66-1.25); Estimated Glomerular Filt Rate 114 ml/min (>60); GFR (African American) 137 ML/MIN (>60); Globulin 3.3 g/dL (1.3-3.2); Glucose 189 mg/dl (74-100); Magnesium 2.3 mg/dl (1.6-2.3); Phosphorous 2.4 mg/dl (2.5-4.5); Potassium 3.8 mmoL/L (3.5-5.1); Sodium 135 mmol/L (136-145); Total Protein,Serum 6.8 g/dl (6.3-8.2)
[2025-05-13 08:00] VITALS: BP 115/64; PULSE 65; PULSE 80; RESP 16; TEMP 36.6; O2SAT 95
[2025-05-13] MEDS: BISOPROLOL 5MG TABLET 10 MG PO (08:26)
[2025-05-13] MEDS: ALLOPURINOL 100MG TABLET 100 MG PO (08:26)
[2025-05-13] MEDS: DOCUSATE SODIUM 100 MG CAPSULE PO (08:26)
[2025-05-13] MEDS: ASPIRIN 81MG CHEWABLE TABLET 81 MG PO (08:26)
[2025-05-13] MEDS: POLYETHYLENE GLYCOL 3350 17 GM PACKET PO (08:30)
[2025-05-13] MEDS: PRASUGREL 10MG TAB 10 MG PO (09:07)
[2025-05-13] MEDS: EMPAGLIFLOZIN 25MG TABLET 25 MG PO (09:07)
[2025-05-13 10:30] LABS: POC Glucose,Bedside 228 (70-110)
--- NOTE | 2025-05-13 10:53 | HMH.PHAINT1 ---
Pharmacy Intervention Comments: MEDICATION RECONCILIATION COMPLETED ON PATIENT USING EXTERNAL FILL HISTORY FROM PHARMACY. -TITUS VENEGAS, OTILIOD
[2025-05-13 11:18] LABS: Sodium,Urine Random 30.0 mmol/L (30-90)
[2025-05-13 12:00] VITALS: BP 159/90; PULSE 69; PULSE 74; RESP 16; TEMP 36.7; O2SAT 95
--- NOTE | 2025-05-13 13:05 | HMH.PTEV ---
Physical Therapy Evaluation Rehab PT IP Evaluation Start: 05/12/25 20:58 Freq: ONCE Status: Active Protocol: Document 05/13/25 12:50 JULES (Rec: 05/13/25 13:05 JULES [id number]) Subjective/History History History Pt is a 65 y/o male who reported to [facility] ED 05/12/25 after falling while standing on a chair. Pt reports he was trying to hang a fly trap and the next thing he knew he was on the ground. Pt reports he is unsure if he fell or had one of his episodes. Pt states he has been blacking out a lot lately without known cause, states his MD is aware. Pt denies LOC or hitting his head. Pt reports he experienced immediate onset of right sided flank and low back pain. Pt reports continued R sided flank pain rated 0/10 with rest and 10/10 with movement described as deep, stabbing and tearing in nature. Pt also reports pain seems to be exacerbated with taking a deep breath. Pt denies chest pain. Pt had head/neck, chest, thoracic, lumbar and pelvis CT scans in the ED without acute findings. Medical History: CAD (coronary artery disease), Hyperlipidemia, Angina pectoris, Hx of deep venous thrombosis, Abnormal electrocardiogram [ECG] [EKG], Polycythemia, BPH (benign prostatic hyperplasia), Gout, GERD (gastroesophageal reflux disease), Diabetes mellitus, Hypertension Subjective Subjective Pt reports he lives in a single story home without MEHDI with his . Pt reports he is independent with all ADLs and iADLs. Pt reports he has a cane but does not use it. Pt reports frequent falls recently due to blacking out without known cause. Observation: no ecchymosis noted of the right flank Palpation: 1-2/4 TTP of the right lower ribs posteriorly New diagnosis of No cancer in past 12 months? [facility] How much help from another person do you currently need... Turning from your None back to your side while in a flat bed without using bedrails? Moving from lying on None back to sitting on the side of a flat bed without using bedrails? Moving to and from a None bed to a chair ( including a wheelchair)? Standing up from a None chair using your arms? (e.g., wheelchair, bedside chair) Walking in hospital None room? Climbing 3-5 steps None with a railing? Mobility Score 24 Mobility Level [facility] Mobility 8 Walk 250 feet or more Mobility Calculator Rehab PT IP Eval Objective Appearance Patient Behavior Appropriate,Cooperative Patient Orientation Place,Name,Birthday,Situation Difficulty following none instructions Speech Pattern Clear,Appropriate Ambulation Patient Able to Yes Ambulate Ambulation Observation IP General Gait No Deviations/Normal Pattern Observation Ambulation Distance 50 (feet) Ambulation Assistive None Device Ambulation Ability Independent Balance Ability to Arise Able, w/o using arms Sitting Balance Steady, safe Standing Balance Steady, wide stance Dynamic Sitting Normal Balance Ability Dynamic Standing Good Balance Ability Transfers Bed Transfer Ability Independent Sit to Stand Bed Independent Transfer Ability ROM All Extremities PT ROM Status WFL MMT All Extremities PT MMT WFL Rehab PT IP prob,goals,plan Problems Date of Evaluation: 05/13/25 Rehab Potential Rehab Potential Innapropriate for Skilled Therapy Discharge Plan PT Discharge Plan Pt is currently at baseline functional mobility status without acute physical therapy needs at this time. Pt is appropriate to discharge home once deemed medically stable by MD. Pt recommended outpatient PT if right sided flank pain persists. Eval Complexity Eval Charge Codes 75211 - Moderate Complexity PHYSICIAN CERTIFICATION: I certify the specified therapy services for Calin Sanchez are required, authorized, and reviewed every 30 days.
--- OUTSIDE RECORDS SUMMARY | 2025-05-13 13:29 | XMS_ITS | Clinical Summary ---
Author Organization [facility] Address [address] [place] [address] Care Team Providers Care Machine Leather Trimmer Name Role Phone Jonn Lamar DO Primary Care Provider [phone] Allergies Active Allergy Reactions Criticality Noted Date [...] (02/02/2018): Added automatically from request for surgery [id number] Alcohol use 02/02/2018 Overview (02/02/2018): Added automatically from request for surgery [id number] History of diverticulitis 02/02/2018 Overview (02/02/2018): Added automatically from request for surgery [id number] Gastroesophageal reflux disease 02/02/2018 Overview (02/02/2018): Added automatically from request for surgery [id number] Dysphagia 02/02/2018 Overview (02/02/2018): Added automatically from request for surgery [id number] Family history of colon cancer in father 018 Overview (02/02/2018): Added automatically from request for surgery [id number] Pseudotumor cerebri Overview (04/24/2016): Drained x 2 [...] SCREENING 04/18/2034 HEPATITIS C SCREENING Completed 01/17/2021 [facility] Discontinued Procedures Procedure Name Priority Date/Time Associated [...] - 5.60 % 11/14/2022 8:25 PM EST [facility] Blood Venipuncture / Unknown 11/14/2022 11:28 AM EST 11/14/2022 11:28 AM EST Narrative [facility] - 11/14/2022 8:25 PM EST Hemoglobin A1C Ranges: Increased Risk for Diabetes 5.7% to 6.4% Diabetes >= 6.5% Diabetic Goal < 7.0% Jonn Lamar LAB BLOOD ORDERABLES Final Result [facility]
[address] [place] [address], [place] [phone] * (ABNORMAL) Lipid panel (08/15/2022 10:33 AM EDT) Total Cholesterol 163 0 - 200 mg/dL 08/15/2022 7:17 PM EDT [facility] Triglycerides 206(H) 0 - 150 mg/dL 08/15/2022 7:17 PM EDT [facility] HDL Cholesterol 36(L) 40 - 60 mg/dL 08/15/2022 7:17 PM EDT [facility] LDL Cholesterol 92 0 - 100 mg/dL 08/15/2022 7:17 PM EDT [facility] VLDL Cholesterol 35 5 - 40 mg/dL 08/15/2022 7:17 PM EDT [facility] LDL/HDL Ratio 2.38 08/15/2022 7:17 PM EDT [facility] Blood Venipuncture / Unknown 08/15/2022 10:33 AM EDT 08/15/2022 10:33 AM EDT Narrative [facility] - 08/15/2022 7:17 PM EDT Cholesterol [...] Lamar DO LAB BLOOD ORDERABLES Final Result [facility]
[address] [place] [address], * Hepatitis Panel, Acute (01/17/2021 8:39 AM EDT) Hepatitis B Surface Ag Non-Reacti ve Non-Reacti ve 01/17/2021 9:23 AM EDT [facility] Hep A IgM Non-Reacti ve Non-Reacti ve 01/17/2021 9:23 AM EDT [facility] Hep B C IgM Non-Reacti ve Non-Reacti ve 01/17/2021 9:23 AM EDT [facility] Hepatitis C Ab Non-Reacti ve Non-Reacti ve 01/17/2021 9:23 AM EDT [facility] Blood Right upper arm structure / Unknown Venipuncture / Unknown 01/17/2021 8:39 AM EDT 01/17/2021 8:43 AM EDT Narrative [facility] - 01/17/2021 9:23 AM EDT Results may be falsely decreased if patient taking Biotin. Janet Hunt [employer] LAB BLOOD ORDERABLES Fi nal Result [facility]
[address] [facility] [place] [id number], [phone] from Last 3 Months or Most Recently Relevant to Health Maintenance Insurance MEDICAID Care Teams Machine Leather Trimmer Relationship Specialty Start Date End Date Jonn Lamar DO [address] [place] [id number] PCP - General Family Medicine 06/19/21
[2025-05-13 15:45] VITALS: BP 157/86; PULSE 67; RESP 16; TEMP 36.7; O2SAT 94
[2025-05-13 16:00] VITALS: PULSE 69
[2025-05-13 16:45] LABS: POC Glucose,Bedside 231 (70-110)
--- NOTE | 2025-05-13 16:47 | EXP.PN ---
Subjective *Date: 05/13/25 *Time: 16:47 Interval history: seen at bedside, no fevers overnight, denied CP, SOB, he mentions he still has significant back pain Exam Data for Last 24 hours Vital signs and Labs for Last 24 Hours: Temp Pulse Resp BP Pulse Ox O2 Del Method 98.1 F 67 16 157/86 H 94 L Room Air 05/13/25 15:45 05/13/25 15:45 05/13/25 15:45 05/13/25 15:45 05/13/25 15:45 05/13/25 16:11 Laboratory Results - last 24 hr 05/12/25 18:33: WBC 10.6, RBC 5.09, Hgb 16.3, Hct 46.6, MCV 91.6, MCH 32.0 H, MCHC 35.0, RDW 12.8, Plt Count 296, MPV 9.9, Neut % (Auto) 57.5, Lymph % (Auto) 29.2, [place] % (Auto) 7.3, Eos % (Auto) 4.3, Baso % (Auto) 1.3, Neut # (Auto) 6.1, Lymph # (Auto) 3.1, [place] # (Auto) 0.8, Eos # (Auto) 0.5 H, Baso # (Auto) 0.1, PT 10.3, INR 0.92, Sodium 129 L, Potassium 2.9 L*, Chloride 92 L, Carbon Dioxide 25, Anion Gap 14.9, BUN 13, Creatinine 0.70, Estimated Creat Clear 115, Estimated GFR 114, Est GFR ( Amer) 137, Glucose 183 H, Hemoglobin A1c 7.9 H, Calcium 9.1, Total Bilirubin 0.4, AST 37, ALT 25, Alkaline Phosphatase 97, Total Protein 8.3 H, Albumin 4.1, Globulin 4.2 H, Albumin/Globulin Ratio 1.0 L 05/12/25 20:05: Urine Color Yellow, Urine Appearance Clear, Urine pH 6.0, Ur Specific [place] <= 1.005, Urine Protein Negative, Urine Glucose (UA) 3+, Urine Ketones Negative, Urine Blood Negative, Urine Nitrate Negative, Urine Bilirubin Negative, Urine Urobilinogen 0.2, Ur Leukocyte Esterase Negative, Urine WBC Occasional, Ur Squamous Epith Cells Occasional 05/12/25 22:27: POC Glucose 233 H 05/13/25 05:18: POC Glucose 201 H 05/13/25 06:40: WBC 10.0, RBC 4.91, Hgb 15.8, Hct 44.9, MCV 91.4, MCH 32.2 H, MCHC 35.2, RDW 12.8, Plt Count 270, MPV 9.9, Neut % (Auto) 82.1 H, Lymph % (Auto) 13.3, [place] % (Auto) 3.8, Eos % (Auto) 0.0 L, Baso % (Auto) 0.2, Neut # (Auto) 8.2 H, Lymph # (Auto) 1.3, [place] # (Auto) 0.4, Eos # (Auto) 0.0, Baso # (Auto) 0.0, Sodium 135 L, Potassium 3.8 D, Chloride 103, Carbon Dioxide 26, Anion Gap 9.8, BUN 14, Creatinine 0.70, Estimated Creat Clear 116, Estimated GFR 114, Est GFR ( Amer) 137, Glucose 189 H, Calcium 8.8, Phosphorus 2.4 L, Magnesium 2.3, Total Bilirubin 0.4, AST 34, ALT 23, Alkaline Phosphatase 85, Total Protein 6.8, Albumin 3.5 D, Globulin 3.3 H, Albumin/Globulin Ratio 1.1 05/13/25 10:22: POC Glucose 228 H 05/13/25 10:47: Urine Sodium 30.0 05/13/25 16:20: POC Glucose 231 H I & O for Last 24 hours: Intake & Output 05/10/25 05/11/25 05/12/25 05/13/25 23:59 23:59 23:59 23:59 Intake Total 700 / 700 Output Total 2800 / 2800 Balance -2099 / -2099 Weight 110.762 kg 109.883 kg Constitutional Constitutional: no acute distress *Routine HEENT Exam Head: Present normocephalic Eye: Present EOMI and PERRL ENT: Present mucous membranes moist *Routine Neck Exam Neck: Present supple; Absent lymphadenopathy *Routine Respiratory Exam Respiratory: Present CTA bilaterally *Routine Cardiovascular Exam Cardiovascular: Present RRR *Routine Abdominal Exam Abdominal: Present soft and normoactive bowel sounds; Absent tenderness *Routine Extremities Exam Extremities: Absent cyanosis, clubbing or edema *Routine Skin Exam Skin: Present warm; Absent rash *Routine Neurological Exam Neurological: Present alert and oriented X3 Assessment and Plan *Assessment and plan (1) Intractable back pain: Status: Acute Category: Medical Code(s): M54.9 - Dorsalgia, unspecified (2) Hypokalemia: Status: Acute Category: Medical Code(s): E87.6 - Hypokalemia (3) Hyponatremia: Status: Acute Category: Medical Code(s): E87.1 - Hypo-osmolality and hyponatremia (4) Chronic alcohol abuse: Status: Chronic Category: Medical Code(s): F10.10 - Alcohol abuse, uncomplicated (5) BMI 35.0-35.9,adult: Status: Chronic Category: Medical Code(s): Z68.35 - Body mass index [BMI] 35.0-35.9, adult (6) Diabetic neuropathy: Status: Chronic Qualifiers: Diabetes mellitus type: type 2 Diabetes mellitus complication detail: diabetic polyneuropathy Qualified Code(s): E11.42 - Type 2 diabetes mellitus with diabetic polyneuropathy Category: Medical Code(s): E11.40 - Type 2 diabetes mellitus with diabetic neuropathy, unspecified (7) Hyperlipidemia: Status: Acute Qualifiers: Hyperlipidemia type: mixed hyperlipidemia Qualified Code(s): E78.2 - Mixed hyperlipidemia Category: Medical Code(s): E78.5 - Hyperlipidemia, unspecified (8) CAD (coronary artery disease): Status: Chronic Qualifiers: Coronary Disease-Associated Artery/Lesion type: [place] artery [employer] [place] vs. transplanted heart: [place] heart Associated angina: without angina Qualified Code(s): I25.10 - Atherosclerotic heart disease of [place] coronary artery without angina pectoris Category: Medical Code(s): I25.10 - Atherosclerotic heart disease of [place] coronary artery without angina pectoris (9) Hypertension: Status: Chronic Qualifiers: Hypertension type: primary hypertension Qualified Code(s): I10 - Essential (primary) hypertension Category: Medical Code(s): I10 - Essential (primary) hypertension (10) Diabetes mellitus: Status: Chronic Qualifiers: Diabetes mellitus type: type 2 Diabetes mellitus snf insulin use: without snf use Diabetes mellitus complication status: with neurologic complications Diabetes mellitus complication detail: with polyneuropathy Qualified Code(s): E11.42 - Type 2 diabetes mellitus with diabetic polyneuropathy Category: Medical Code(s): E11.9 - Type 2 diabetes mellitus without complications (11) Gout: Status: Acute Category: Medical Code(s): M10.9 - Gout, unspecified Plan Mr. Sanchez is a 65-year-old male that was hanging fly paper this evening at home and fell off the chair he was standing on. Reports having episodes of blacking out at home and has had them for some time. Upon regaining consciousness on the floor he had significant back pain. Thought he had broken something. Came to the ER for further evaluation. Images negative for any fracture. Pain uncontrolled in the ED. Also found to have hyponatremia with sodium of 129 and potassium of 2.9. Discussed case with ER physician, request admission for electrolyte replacement and further management of intractable back pain. I agreed to admit for further care. Necessitating inpatient management due to needing IV opiates for severity of pain. Will have therapy evaluate in the morning. Problems addressed as follows: Intractable back pain Fall Neuropathy CT chest abdomen pelvis and C/T/L-spine, no acute fractures. Pain lateral to spine, likely musculoskeletal. pain control PT/OT to see the patient will start neurontin Hyponatremia - improved to 135 today Hypokalemia - improved Suspect secondary to his daily beer consumption. monitor and replace electrolytes COPD: Albuterol inhaler as needed every 6 hours. Not in acute exacerbation. Diabetes: A1c obtained, 7.9 on presentation. ACHS and sliding scale insulin ACHS. Resume empagliflozin 25 mg daily per home regimen Hypertension: CAD: - Resume prasugrel 10 mg and aspirin 81mg daily. - Resume amlodipine 10 mg twice daily, bisoprolol 10 mg daily - Will confirm valsartan dosage prior to resuming BPH: Continue tamsulosin 0.4 mg night he Gout: Continue allopurinol 100 mg twice daily. Does not appear to have a flare at this time Obesity, complicates all aspects of his care Full code Lovenox 40 subcu daily Diabetic diet likely dc 1-2 days pending imrovement, f/u with PT/OT
--- NOTE | 2025-05-13 17:47 | EXP.DC.SUM ---
General Admission date:: 05/12/25 Discharge date: 05/13/25 HPI HPI HPI: Mr. Sanchez is a 65-year-old male who has a history of CAD, hypertension, neuropathy, diabetes, daily alcohol consumption, has obesity and gout. He presented to the ER after falling while standing on a chair. Was attempting to hang by paper at home and states he fell out of the chair. Occasionally has episodes of blacking out. Denies hitting his head. He landed on his back when he fell. Initially was unable to get up due to pain. Ultimately able to ambulate and get to the ER in a private vehicle. Denies any worsening numbness or tingling or weakness in his legs or arms. Does have neuropathy and has chronic tingling sensation in his feet and lower legs. Denies any chest pain or shortness of breath. No abdominal pain. Workup in the ER with extensive imaging showing no fracture. Multiple attempts to address pain however were limited in their effectiveness. Labs also showed low sodium of 129 and potassium of 2.9. Given his intractable back pain and electrolyte disturbances, medicine was consulted for admission and further management After arriving to the floor, he states that after receiving IV opiates his pain is doing somewhat better. It is tolerable at this time as long as he does not move. Alert and oriented x 4. Stable on room air. States he drinks 8-12 beers a day. Currently receiving potassium replacement. Hospital Course Hospital Course Hospital Course: Mr. Sanchez is a 65-year-old male that was hanging fly paper this evening at home and fell off the chair he was standing on. Reports having episodes of blacking out at home and has had them for some time. Upon regaining consciousness on the floor he had significant back pain. Thought he had broken something. Came to the ER for further evaluation. Images negative for any fracture. Pain uncontrolled in the ED. Also found to have hyponatremia with sodium of 129 and potassium of 2.9. Discussed case with ER physician, request admission for electrolyte replacement and further management of intractable back pain. I agreed to admit for further care. Necessitating inpatient management due to needing IV opiates for severity of pain. Will have therapy evaluate in the morning. Problems addressed as follows: Intractable back pain Fall Neuropathy CT chest abdomen pelvis and C/T/L-spine, no acute fractures. Pain lateral to spine, likely musculoskeletal. pain control PT/OT seen the patient and no additional needs, patient is roaming around in his room and is requesting to be discharged, patient counseled to follow up with PCP in 1 week, patient is discharged home Exam Data for Last 24 hours Vital signs and Labs for Last 24 Hours: Temp Pulse Resp BP Pulse Ox O2 Del Method 98.1 F 69 16 157/86 H 94 L Room Air 05/13/25 15:45 05/13/25 16:00 05/13/25 15:45 05/13/25 15:45 05/13/25 15:45 05/13/25 16:11 Laboratory Results - last 24 hr 05/12/25 18:33: WBC 10.6, RBC 5.09, Hgb 16.3, Hct 46.6, MCV 91.6, MCH 32.0 H, MCHC 35.0, RDW 12.8, Plt Count 296, MPV 9.9, Neut % (Auto) 57.5, Lymph % (Auto) 29.2, Hughes % (Auto) 7.3, Eos % (Auto) 4.3, Baso % (Auto) 1.3, Neut # (Auto) 6.1, Lymph # (Auto) 3.1, Hughes # (Auto) 0.8, Eos # (Auto) 0.5 H, Baso # (Auto) 0.1, PT 10.3, INR 0.92, Sodium 129 L, Potassium 2.9 L*, Chloride 92 L, Carbon Dioxide 25, Anion Gap 14.9, BUN 13, Creatinine 0.70, Estimated Creat Clear 115, Estimated GFR 114, Est GFR ( Amer) 137, Glucose 183 H, Hemoglobin A1c 7.9 H, Calcium 9.1, Total Bilirubin 0.4, AST 37, ALT 25, Alkaline Phosphatase 97, Total Protein 8.3 H, Albumin 4.1, Globulin 4.2 H, Albumin/Globulin Ratio 1.0 L 05/12/25 20:05: Urine Color Yellow, Urine Appearance Clear, Urine pH 6.0, Ur Specific Scurry <= 1.005, Urine Protein Negative, Urine Glucose (UA) 3+, Urine Ketones Negative, Urine Blood Negative, Urine Nitrate Negative, Urine Bilirubin Negative, Urine Urobilinogen 0.2, Ur Leukocyte Esterase Negative, Urine WBC Occasional, Ur Squamous Epith Cells Occasional 05/12/25 22:27: POC Glucose 233 H 05/13/25 05:18: POC Glucose 201 H 05/13/25 06:40: WBC 10.0, RBC 4.91, Hgb 15.8, Hct 44.9, MCV 91.4, MCH 32.2 H, MCHC 35.2, RDW 12.8, Plt Count 270, MPV 9.9, Neut % (Auto) 82.1 H, Lymph % (Auto) 13.3, Hughes % (Auto) 3.8, Eos % (Auto) 0.0 L, Baso % (Auto) 0.2, Neut # (Auto) 8.2 H, Lymph # (Auto) 1.3, Hughes # (Auto) 0.4, Eos # (Auto) 0.0, Baso # (Auto) 0.0, Sodium 135 L, Potassium 3.8 D, Chloride 103, Carbon Dioxide 26, Anion Gap 9.8, BUN 14, Creatinine 0.70, Estimated Creat Clear 116, Estimated GFR 114, Est GFR ( Amer) 137, Glucose 189 H, Calcium 8.8, Phosphorus 2.4 L, Magnesium 2.3, Total Bilirubin 0.4, AST 34, ALT 23, Alkaline Phosphatase 85, Total Protein 6.8, Albumin 3.5 D, Globulin 3.3 H, Albumin/Globulin Ratio 1.1 05/13/25 10:22: POC Glucose 228 H 05/13/25 10:47: Urine Sodium 30.0 05/13/25 16:20: POC Glucose 231 H I & O for Last 24 hours: Intake & Output 05/10/25 05/11/25 05/12/25 05/13/25 23:59 23:59 23:59 23:59 Intake Total 700 / 700 Output Total 2800 / 2800 Balance -2099 / -2099 Weight 110.762 kg 109.883 kg Constitutional Constitutional: no acute distress *Routine HEENT Exam Head: Present normocephalic Eye: Present EOMI and PERRL ENT: Present mucous membranes moist *Routine Neck Exam Neck: Present supple; Absent lymphadenopathy *Routine Respiratory Exam Respiratory: Present CTA bilaterally *Routine Cardiovascular Exam Cardiovascular: Present RRR *Routine Abdominal Exam Abdominal: Present soft and normoactive bowel sounds; Absent tenderness *Routine Extremities Exam Extremities: Absent cyanosis, clubbing or edema *Routine Skin Exam Skin: Present warm; Absent rash *Routine Neurological Exam Neurological: Present alert and oriented X3 Results Data Completed and Pending Labs on day of discharge: Labs from last 24 hours 05/13/25 05/13/25 05/13/25 16:20 10:47 10:22 WBC RBC Hgb Hct MCV MCH MCHC RDW Plt Count MPV Neut % (Auto) Lymph % (Auto) Hughes % (Auto) Eos % (Auto) Baso % (Auto) Neut # (Auto) Lymph # (Auto) Hughes # (Auto) Eos # (Auto) Baso # (Auto) PT INR Sodium Potassium Chloride Carbon Dioxide Anion Gap BUN Creatinine Estimated Creat Clear Estimated GFR Est GFR ( Amer) Glucose POC Glucose 231 H 228 H Hemoglobin A1c Calcium Phosphorus Magnesium Total Bilirubin AST ALT Alkaline Phosphatase Total Protein Albumin Globulin Albumin/Globulin Ratio Urine Color Urine Appearance Urine pH Ur Specific Scurry Urine Protein Urine Glucose (UA) Urine Ketones Urine Blood Urine Nitrate Urine Bilirubin Urine Urobilinogen Ur Leukocyte Esterase Urine WBC Ur Squamous Epith Cells Urine Sodium 30.0 05/13/25 05/13/25 05/12/25 06:40 05:18 22:27 WBC 10.0 RBC 4.91 Hgb 15.8 Hct 44.9 MCV 91.4 MCH 32.2 H MCHC 35.2 RDW 12.8 Plt Count 270 MPV 9.9 Neut % (Auto) 82.1 H Lymph % (Auto) 13.3 Hughes % (Auto) 3.8 Eos % (Auto) 0.0 L Baso % (Auto) 0.2 Neut # (Auto) 8.2 H Lymph # (Auto) 1.3 Hughes # (Auto) 0.4 Eos # (Auto) 0.0 Baso # (Auto) 0.0 PT INR Sodium 135 L Potassium 3.8 D Chloride 103 Carbon Dioxide 26 Anion Gap 9.8 BUN 14 Creatinine 0.70 Estimated Creat Clear 116 Estimated GFR 114 Est GFR ( Amer) 137 Glucose 189 H POC Glucose 201 H 233 H Hemoglobin A1c Calcium 8.8 Phosphorus 2.4 L Magnesium 2.3 Total Bilirubin 0.4 AST 34 ALT 23 Alkaline Phosphatase 85 Total Protein 6.8 Albumin 3.5 D Globulin 3.3 H Albumin/Globulin Ratio 1.1 Urine Color Urine Appearance Urine pH Ur Specific Scurry Urine Protein Urine Glucose (UA) Urine Ketones Urine Blood Urine Nitrate Urine Bilirubin Urine Urobilinogen Ur Leukocyte Esterase Urine WBC Ur Squamous Epith Cells Urine Sodium 05/12/25 05/12/25 20:05 18:33 WBC 10.6 RBC 5.09 Hgb 16.3 Hct 46.6 MCV 91.6 MCH 32.0 H MCHC 35.0 RDW 12.8 Plt Count 296 MPV 9.9 Neut % (Auto) 57.5 Lymph % (Auto) 29.2 Hughes % (Auto) 7.3 Eos % (Auto) 4.3 Baso % (Auto) 1.3 Neut # (Auto) 6.1 Lymph # (Auto) 3.1 Hughes # (Auto) 0.8 Eos # (Auto) 0.5 H Baso # (Auto) 0.1 PT 10.3 INR 0.92 Sodium 129 L Potassium 2.9 L* Chloride 92 L Carbon Dioxide 25 Anion Gap 14.9 BUN 13 Creatinine 0.70 Estimated Creat Clear 115 Estimated GFR 114 Est GFR ( Amer) 137 Glucose 183 H POC Glucose Hemoglobin A1c 7.9 H Calcium 9.1 Phosphorus Magnesium Total Bilirubin 0.4 AST 37 ALT 25 Alkaline Phosphatase 97 Total Protein 8.3 H Albumin 4.1 Globulin 4.2 H Albumin/Globulin Ratio 1.0 L Urine Color Yellow Urine Appearance Clear Urine pH 6.0 Ur Specific Scurry <= 1.005 Urine Protein Negative Urine Glucose (UA) 3+ Urine Ketones Negative Urine Blood Negative Urine Nitrate Negative Urine Bilirubin Negative Urine Urobilinogen 0.2 Ur Leukocyte Esterase Negative Urine WBC Occasional Ur Squamous Epith Cells Occasional Urine Sodium DS: Diagnosis Discharge Diagnosis (1) Intractable back pain: Status: Acute Code(s): M54.9 - Dorsalgia, unspecified (2) Hypokalemia: Status: Acute Code(s): E87.6 - Hypokalemia (3) Hyponatremia: Status: Acute Code(s): E87.1 - Hypo-osmolality and hyponatremia (4) Chronic alcohol abuse: Status: Chronic Code(s): F10.10 - Alcohol abuse, uncomplicated (5) BMI 35.0-35.9,adult: Status: Chronic Code(s): Z68.35 - Body mass index [BMI] 35.0-35.9, adult (6) Diabetic neuropathy: Status: Chronic Code(s): E11.40 - Type 2 diabetes mellitus with diabetic neuropathy, unspecified Qualifiers: Diabetes mellitus type: type 2 Diabetes mellitus complication detail: diabetic polyneuropathy Qualified Code(s): E11.42 - Type 2 diabetes mellitus with diabetic polyneuropathy (7) Hyperlipidemia: Status: Acute Code(s): E78.5 - Hyperlipidemia, unspecified Qualifiers: Hyperlipidemia type: mixed hyperlipidemia Qualified Code(s): E78.2 - Mixed hyperlipidemia (8) CAD (coronary artery disease): Status: Chronic Code(s): I25.10 - Atherosclerotic heart disease of [place] coronary artery without angina pectoris Qualifiers: Coronary Disease-Associated Artery/Lesion type: [place] artery [place] vs. transplanted heart: ramona heart Associated angina: without angina Qualified Code(s): I25.10 - Atherosclerotic heart disease of [place] coronary artery without angina pectoris (9) Hypertension: Status: Chronic Code(s): I10 - Essential (primary) hypertension Qualifiers: Hypertension type: primary hypertension Qualified Code(s): I10 - Essential (primary) hypertension (10) Diabetes mellitus: Status: Chronic Code(s): E11.9 - Type 2 diabetes mellitus without complications Qualifiers: Diabetes mellitus type: type 2 Diabetes mellitus lobsterman insulin use: without lobsterman use Diabetes mellitus complication status: with neurologic complications Diabetes mellitus complication detail: with polyneuropathy Qualified Code(s): E11.42 - Type 2 diabetes mellitus with diabetic polyneuropathy (11) Gout: Status: Acute Code(s): M10.9 - Gout, unspecified Meds Home Medications and Allergies Home Medications ?Medication ?Instructions ?Recorded ?Confirmed ?Type blood sugar diagnostic (OneTouch #100 ea 09/13/24 05/13/25 Rx Ultra Test strips) lancets 33 gauge #100 ea 09/13/24 05/13/25 Rx aspirin 81 mg chewable tablet 81 mg PO DAILY 90 days #90 tabs 11/02/24 05/13/25 Rx prasugrel HCl 10 mg tablet 10 mg PO DAILY 90 days #90 tabs 11/02/24 05/13/25 Rx (Effient) pravastatin 40 mg tablet 40 mg PO DAILY #90 tabs 11/09/24 05/13/25 Rx bisoprolol fumarate 10 mg tablet 10 mg PO DAILY 90 days #90 tabs 02/14/25 05/13/25 Rx valsartan 320 1 tab PO DAILY 90 days #90 tabs 02/14/25 05/13/25 Rx mg-hydrochlorothiazide 25 mg tablet (Diovan HCT) semaglutide 0.25 mg or 0.5 mg (2 0.25 mg (0.368 mL) SQ WEEKLY #3 mL 04/04/25 05/13/25 Rx mg/3 mL) subcutaneous pen injector (Ozempic) blood sugar diagnostic (Blood #50 ea 04/26/25 05/13/25 Rx Glucose Test strips) blood-glucose meter (Blood Glucose #1 ea 04/26/25 05/13/25 Rx Monitoring kit) lancets (Fingerstix Lancets) #100 ea 04/26/25 05/13/25 Rx albuterol sulfate 90 mcg/actuation 2 puff inhalation QID 05/13/25 05/13/25 History aerosol inhaler (Ventolin HFA) allopurinol 100 mg tablet 100 mg PO BID 05/13/25 05/13/25 History amitriptyline 50 mg tablet 50 mg PO DAILY 05/13/25 05/13/25 History docusate sodium 100 mg capsule 100 mg PO BID 05/13/25 05/13/25 History empagliflozin 25 mg tablet 25 mg PO DAILY 05/13/25 05/13/25 History (Jardiance) glipizide 5 mg tablet 10 mg PO BID 05/13/25 05/13/25 History pantoprazole 40 mg tablet,delayed 40 mg PO DAILY 05/13/25 05/13/25 History release tamsulosin 0.4 mg capsule 0.4 mg PO DAILY 05/13/25 05/13/25 History thiamine HCl (vitamin B1) 100 mg 250 mg PO DAILY 05/13/25 05/13/25 History tablet (Vitamin B-1) topiramate 50 mg tablet 50 mg PO BID 05/13/25 05/13/25 History New Prescriptions to Start Prescriptions: Allergies Allergy/AdvReac Type Severity Reaction Status Date / Time bee venom protein (honey bee) Allergy Swelling Verified 05/12/25 22:08 of Lip/Tongue/Throat gabapentin AdvReac Severe sucidal Verified 03/29/25 09:54 thoughts Discharge Plan Disposition Patient Disposition: Home, Self-Care Condition: Good Discharge Order Discharge Orders: Discharge Order (Routine); Ordered 05/13/25 Ordered By: Frederick Rodriguez Follow up Plan Follow up with: Daljit Mcmullen MD [Primary Care Provider, Internal Medicine] - Enter time for follow up Prescriptions/Medication Reconciliation: Continued aspirin 81 mg tablet,chewable 81 mg PO DAILY 90 Days Qty: 90 3RF prasugrel HCl [Effient] 10 mg tablet 10 mg PO DAILY 90 Days Qty: 90 3RF (DME) OneTouch Ultra Test Strip See Rx Instructions .Route Qty: 100 2RF Rx Instructions: BID prn (DME) lancets 33 gauge misc See Rx Instructions .Route Qty: 100 2RF Rx Instructions: BID prn pravastatin 40 mg tablet 40 mg PO DAILY Qty: 90 1RF bisoprolol fumarate 10 mg tablet 10 mg PO DAILY 90 Days Qty: 90 3RF valsartan-hydrochlorothiazide [Diovan HCT] 320-25 mg tablet 1 tab PO DAILY 90 Days Qty: 90 3RF Ozempic 0.25 mg or 0.5 mg (2 mg/3 mL) pen injector 0.25 mg SQ WEEKLY Qty: 3 1RF Rx Instructions: for 4 weeks (DME) Blood Glucose Test Strip See Rx Instructions .ROUTE .MEDSUPPLY Qty: 50 3RF Rx Instructions: As directed (DME) lancets [Fingerstix Lancets] Misc See Rx Instructions .Route Qty: 100 2RF Rx Instructions: As directed (DME) blood-glucose meter [Blood Glucose Monitoring] Kit See Rx Instructions .ROUTE .MEDSUPPLY Qty: 1 0RF Rx Instructions: As directed topiramate 50 mg tablet 50 mg PO BID Patient Comments: TAKE 1 TABLET 2 TIMES EACH DAY docusate sodium 100 mg capsule 100 mg PO BID Patient Comments: TAKE 1 CAPSULE 2 TIMES EACH DAY allopurinol 100 mg tablet 100 mg PO BID Patient Comments: TAKE 1 TABLET 2 TIMES EACH DAY FOR GOUT amitriptyline 50 mg tablet 50 mg PO DAILY Patient Comments: TAKE 1 TABLET 1 TIME EACH DAY tamsulosin 0.4 mg capsule 0.4 mg PO DAILY Patient Comments: TAKE 1 CAPSULE 1 TIME EACH DAY FOR PROSTATE pantoprazole 40 mg Tablet,Delayed Release (Dr/Ec) 40 mg PO DAILY Jardiance 25 mg tablet 25 mg PO DAILY Patient Comments: TAKE 1 TABLET 1 TIME EACH DAY FOR DIABETES thiamine HCl (vitamin B1) [Vitamin B-1] 100 mg tablet 250 mg PO DAILY Patient Comments: TAKE 2 AND 1/2 TABLETS 1 TIME EACH DAY albuterol sulfate [Ventolin HFA] 90 mcg/actuation HFA aerosol inhaler 2 puff INHALATION QID Patient Comments: INHALE 2 PUFFS 4 TIMES EACH DAY glipizide 5 mg tablet 10 mg PO BID Patient Comments: TAKE 2 TABLETS IN THE MORNING, AND TAKE 2 TABLETS IN THE EVENING. Problem Reconciliation Problems Reviewed?: Yes Patient Discharge Instructions ACTIVITY: Continue current activity DIET: continue same diet Patient Instructions: DI for Alcohol Use Disorder, DI for Hypokalemia, DI for Hyponatremia Print Language: Macedonian Providers Primary Care Provider: Daljit Mcmullen Admit Provider: Willard Chao Attending Provider: Willard Chao
--- NOTE | 2025-05-15 11:37 | SW/DCPLANNER ---
Spoke with patient on the phone. Patient stated that he is doing a little better and been walking around. Patient stated that he is aware of his upcoming appointments. Patient stated that he was able to get his new medicine picked up. Patient stated that he has no concerns or questions at this time. Alejandro Nevarez
== END 2025-05-13 18:00 | disposition home or self-care (01) ==
LOC: ER 21:01 → 2ND 05-13 06:06
PROVIDERS: Physician Assistant; Admitting Provider Internal Medicine Adolescent Medicine; Emergency Provider Student in an Organized Health Care Education/Training Program; PCP Family Medicine; Visit Provider Internal Medicine Adolescent Medicine
DX: R29.898 Other symptoms and signs involving the musculoskeletal system (principal); E87.1 Hypo-osmolality and hyponatremia; E87.6 Hypokalemia; I25.10 Atherosclerotic heart disease of native coronary artery without angina pectoris; E78.2 Mixed hyperlipidemia; M10.9 Gout, unspecified; J44.9 Chronic obstructive pulmonary disease, unspecified; N40.0 Benign prostatic hyperplasia without lower urinary tract symptoms; I10 Essential (primary) hypertension; E11.42 Type 2 diabetes mellitus with diabetic polyneuropathy; E66.9 Obesity, unspecified; F10.10 Alcohol abuse, uncomplicated; F17.200 Nicotine dependence, unspecified, uncomplicated; Z79.899 Other long term (current) drug therapy; Z98.3 Post therapeutic collapse of lung status; Z79.82 Long term (current) use of aspirin; Z79.85 Long-term (current) use of injectable non-insulin antidiabetic drugs; Z88.8 Allergy status to other drugs, medicaments and biological substances; Z68.33 Body mass index [BMI] 33.0-33.9, adult; Z79.84 Long term (current) use of oral hypoglycemic drugs
CPT/HCPCS: 36415; 70450; 70496; 70498; 71275; 72125; 72128; 72131; 72192; 74174; 80053; 81001; 82962; 83036; 83735; 84100; 84540; 85025; 85610; 93005; 97162; G0378; J1100; J1171; J1650; J1885; J2405; J3480; J7030; Q9967